=== PATIENT | female | born 1940 | race Caucasian/White ===

== ENCOUNTER 2017-02-07 18:22 | Inpatient (IN) ==
--- NOTE | 2017-02-07 19:40 | Emergency Department Note ---
Disposition Clinical Impression: Shortness of breath at rest Disposition: Admitted As Inpatient Condition: Fair Referrals: Michelle Tristan CNP [Primary Care Provider] - Forms: ED Satisfaction Letter SOB HPI - General Chief Complaint: ED Shortness of Breath/Dyspnea Stated Complaint: LYNETTE Time Seen by Provider: 02/07/17 18:28 Source: patient Vital Signs Reviewed: Yes - History of Present Illness Patient is a 76 -year-old female past medical history of CHF(last echo 2012, EF60%) presented to the ED with the 3 days of worsening shortness of breath and LE edema . The last three days patient has gained 10 pounds. She is increased from 2 pillow orthopnea to the 3 pillow orthopnea. She is been feeling that she is not able to eat very much because he is easily full. She does not require oxygen at home. She has been taking her Lasix as directed at 40 mg daily. Currently while talking. She is on 2 L of oxygen and saturating at 98% and says she still feels short of breath. Patient has associated generalized weakness and dizziness. Patient denies fever, chills, cough, vomiting, dysuria , falls, headache. - Related Data Home Medications Medication Instructions Recorded Confirmed Furosemide [Lasix] 40 mg PO DAILY 11/11/15 02/07/17 Pioglitazone HCl [Actos] 15 mg PO DAILY 11/11/15 02/07/17 Spironolactone [Aldactone] 50 mg PO DAILY 11/11/15 02/07/17 Acetaminophen [Tylenol Arthritis] 650 mg PO Q8H PRN 02/07/17 02/07/17 Esomeprazole Magnesium [Nexium 20 mg PO DAILY 02/07/17 02/07/17 24Hr] Aruna's Leg Cramps 1 tab PO HS 02/07/17 Allergies Allergy/AdvReac Type Severity Reaction Status Date / Time quinapril [From Accupril] Allergy Cough Verified 11/11/15 15:03 NSAIDS (Non-Steroidal AdvReac Gastrointestinal Verified 11/11/15 15:03 Anti-Inflamma Upset Past Medical History - Past Medical History Medical history: Reports: cirrhosis, coronary artery disease, diabetes, hypertension, myocardial infarction, renal disease Surgical history: Reports: appendectomy, cholecystectomy Psychiatric history: Reports: depression - Social History Smoking Status: Never smoker Smokeless Tobacco Status: No Alcohol use: Reports: none Drug use: Reports: none Physical Exam Constitutional: Alert, in no acute distress, well nourished, well developed. Head: Normocephalic, atraumatic, normal contour and symmetric, no masses, lesions or scars Heart: Normal, regular rate and rhythm, no murmurs Lungs: bibasilar crackles Clear to auscultation, no wheezes, rales, or rhonchi Abdomen: Soft, nondistended, nontender, and no masses palpable, bowel sounds present and normal, no guarding or rigidity. Extremities: multiple sores bilaterally on shins without signs of infection, +3 pitting edema, dorsal pedial pulses present, negative homen's sign, no pain with passive motion, No clubbing, cyanosis, or edema, radial pulse +2/4, capillary refill <2sec. Skin: Skin warm and dry, no lesions, no rashes, no jaundice Neurologic: Cranial nerves II through XII grossly intact, no focal deficits, strength within normal limits in all extremities Psych: Cooperative with exam, good eye contact, cognitive function intact, judgment good insight good, speech clear, thought process logical, and goal directed - General General appearance: alert, in no apparent distress Course Course Narrative: EKG showed normal sinus rhythm with a normal axis. BNP was elevated at 282 and has new onset of SOB with no prior echo concerns for congestive heart failure. CBC is pending. Due new onset of SOB, elevated BNP, and cxr that shows edema most likely due to acute congestive heart failure exacerbation and needs admitted for Echo and CHF work-up/management. Discussed with the hospitalist and they accepted admission. Vital Signs Temperature 98.1 F 02/07/17 18:34 Pulse Rate 82 02/07/17 18:34 Respiratory Rate 16 02/07/17 18:34 Blood Pressure 152/84 02/07/17 18:34 O2 Sat by Pulse Oximetry 100 02/07/17 18:34 Temperature 98.1 F 02/07/17 18:34 Pulse Rate 88 02/07/17 20:00 Respiratory Rate 18 02/07/17 20:00 Blood Pressure 166/63 02/07/17 20:00 O2 Sat by Pulse Oximetry 100 02/07/17 20:00 Oxygen Delivery Oxygen Delivery Nasal Cannula Shortness of Breath/Dyspnea - Medical Records Medical records reviewed: Yes I reviewed the patient's medical records. Abnormal Labs 02/07/17 02/07/17 19:21 19:48 Potassium 4.6 H BUN 39 H Creatinine 2.02 H Est GFR ( Amer) 29 L Est GFR (Non-Af Amer) 24 L Glucose 107 H B-Natriuretic Peptide 282 H - Lab Data Lab results reviewed: Yes I reviewed the patient's lab results. Result diagrams: 02/07/17 19:21 Lab Results 02/07/17 02/07/17 02/07/17 Range/Units 19:21 19:21 19:48 Sodium 138 (136-145) mEq/L Potassium 4.6 H (3.5-4.5) mEq/L Chloride 107 (98-109) mEq/L Carbon Dioxide 21 (19-29) mEq/L BUN 39 H (7-20) mg/dL Creatinine 2.02 H (0.57-1.11) mg/dL Est GFR ( Amer) 29 L (> 60) Est GFR (Non-Af Amer) 24 L (> 60) BUN/Creatinine Ratio 19 (6-26) Glucose 107 H (70-99) mg/dL Calculated Osmolality 296 (280-300) Calcium 9.2 (8.6-10.8) mg/dL Troponin I 0.00 (0-0.03) ng/mL B-Natriuretic Peptide 282 H (0-100) pg/mL - Radiology Data Radiology results reviewed: Yes I reviewed the patient's radiology results. Chest X-Ray 02/07/17 18:40 IMPRESSION: Prominent markings bilaterally may represent sequela of low volumes. Mild developing edema not excluded. D/ / Tam Mathews / Tam Mathews Interpreting Provider: Tam Mathews - EKG Data EKG attestation: Yes I reviewed and interpreted this EKG. EKG shows normal: Reports: sinus rhythm Rate: Reports: normal Rhythm: Reports: NSR [place]/QRS: Reports: normal Ectopy: Reports: PAC When compared to previous EKG there are: no significant changes Interpretation: Reports: no acute changes
[2017-02-07 19:43] LABS: Calcium 9.2 mg/dL (8.6-10.8); Potassium 4.6 mEq/L (3.5-4.5)
--- NOTE | 2017-02-07 20:11 | Emergency Department Note ---
START Narrative - START START: I examined this patient and my medical decision-making was reviewed with the TOGGLER/PA/Advanced Practice Nurse/Resident Physician. I agree with the documented findings, disposition and treatment plan as described except to the extent set forth below. The patient does have shortness of breath and she does have a history of ascites and does have an evaluation in progress. I did see the patient spoke with her and evaluated her and examined her. Results and chest x-ray pending. She is breathing and speaking comfortably at this time. 2010
[2017-02-07 21:38] LABS: Immature Platelets 2.1 % (1.1-6.1)
[2017-02-07 21:58] LABS: Hematocrit 18.4 % (35.3-44.9); Mean Corpuscular HGB Conc 30.4 g/dL (31.6-35.5); Mean Corpuscular Hemoglobin 27.3 pg (28.0-33.3); Mean Corpuscular Volume 89.8 fL (83.0-100.0); Mean Platelet Volume 10.3 fL (9.4-12.4); Red Blood Count 2.05 M/mcL (3.82-4.97); Red Cell Distribution Width 17.2 % (11.5-14.5)
[2017-02-07 22:16] LABS: Hemoglobin 5.6 g/dL (11.5-15.4)
[2017-02-08] MEDS ORDERED: 0.9 % Sodium Chloride 250 ML ONE ×2 (01:18→04:46)
[2017-02-08] MEDS ORDERED: *HR* Morphine 2 MG/ML SYRINGE IVP PRN (03:30)
[2017-02-08] MEDS ORDERED: Ondansetron 4 MG/2 ML VIAL IVP PRN (03:30)
[2017-02-08] MEDS ORDERED: *HR* OxyCODONE Immed Rel 5 MG TABLET PO PRN (03:30)
[2017-02-08] MEDS ORDERED: Naloxone 0.4 MG/ML INJ IVP PRN (03:30)
[2017-02-08] MEDS ORDERED: D5% in Water 1,000 ML IVC PRN (03:36)
[2017-02-08] MEDS ORDERED: Dextrose Gel 15 GM PO PRN ×2 (03:36)
[2017-02-08] MEDS ORDERED: *HR* Dextrose 50 % in Water (Syg) 50 ML SYRINGE IVP PRN (03:36)
--- NOTE | 2017-02-08 03:45 | Internal Med History&Physical ---
Date of Encounter: 02/08/17 Time of Encounter: 03:10 Assessment and Plan (1) Symptomatic anemia Current visit: Yes Status: Acute 1. Will transfuse PRBC's and monitor H/H closely. 2. Will provide oxygen as needed for support. 3. Do not suspect CHF; will order ECHO to evaluate LV function. 4. Monitor for GI blood loss. 5. Consult Dr. Leblanc for EGD/colonoscopy. (2) UGI bleed Current visit: Yes Status: Acute 1. Will start Protonix drip and add Carafate. 2. Keep npo. 3. Consult Dr. Leblanc for EGD +/- colonoscopy. 4. 2nd IV placement requested. (3) Type 2 diabetes mellitus Current visit: Yes Status: Chronic 1. Will hold Actos. Actos can rarely lead to fluid retention as well. 2. Will use SSI and adjust dose as necessary. Qualifiers: Diabetes mellitus complication status: with other specified complication Diabetes mellitus extermination inspector insulin use: without extermination inspector use Qualified Code( s): E11.69 - Type 2 diabetes mellitus with other specified complication (4) DVT prophylaxis Current visit: Yes Status: Acute 1. EPCD. 2. No anticoagulation due to GI blood loss. Internal Medicine - H&P: HPI Chief complaint: SOB; edema; melena Admitted From: Emergency Dept Plans for Post Hospital Care: Home History of present illness: Ms. Pineda is a 76 year old female who presented to the ER tonight with complaints of increasing edema, weight gain, shortness of breath, and melena. Workup in the ER focused on CHF and her history of CHF. She was initially treated for CHF and admitted to hospitalist service. However, lab results were later obtained and she was found to have a critical anemia with hemoglobin of 5.6. She was then questioned about GI blood loss, and she then reported to ER staff that she has been having melena for the last few days. She was initiated on PRBC transfusion per the ER. Upon my assessment of the patient, patient is resting comfortably. She denies any chest pain. She attributes her 10 pound weight gain in the last 2 days to her ascites. She states she has fatty liver disease from diabetes with subsequent cirrhosis. She has a history of esophageal varices and her last EGD was in October of this year with incomplete variceal banding. Her hemoglobin has dropped over 3 grams in the last 2 months. She denies any hematochezia or hematemesis. However, she does admit to having had melena in the last few days. She has a history of diastolic CHF with the last known EF of 60% in 2012. She denies any cardiac symptoms. She attributes her edema to her ascites. I suspect her dyspnea is secondary to demand ischemia from critical anemia. After I left the patient's room, I asked the nurse to place a second IV and to keep her nothing by mouth for likely EGD later today. Additionally, we will start her on Protonix drip and Carafate. Past Med Surg Social Fam HX - Past Medical History Attestation: Yes The following information was validated with the patient. Source: patient, old records reviewed Medical history: cirrhosis, coronary artery disease, diabetes, renal disease Psychiatric history: anxiety, depression - Past Surgical History Surgical History: appendectomy, cholecystectomy - Social History Smoking Status: Never smoker Smokeless Tobacco Status: No Alcohol use: none Drug use: none Current living situation: Home, With Family Activity Level: Independent ambulation Recent Out of Country Travel Within the Last 8 Weeks: No - Family History Mother Living Status: Hx Family GI Disorders: No Father Living Status: Hx Family GI Disorders: No Internal Medicine - H&P: Meds Furosemide [Lasix] 40 mg PO DAILY 11/11/15 [History] Pioglitazone HCl [Actos] 15 mg PO DAILY 11/11/15 [History] Spironolactone [Aldactone] 50 mg PO DAILY 11/11/15 [History] Acetaminophen [Tylenol Arthritis] 650 mg PO Q8H PRN 02/07/17 [History] Esomeprazole Magnesium [Nexium 24Hr] 20 mg PO DAILY 02/07/17 [History] Aruna's Leg Cramps 1 tab PO HS 02/07/17 [History] 3 Allergy/AdvReac Type Severity Reaction Status Date / Time quinapril [From Accupril] Allergy Cough Verified 11/11/15 15:03 NSAIDS (Non-Steroidal AdvReac Gastrointestinal Verified 11/11/15 15:03 Anti-Inflamma Upset - Constitutional Constitutional: weight gain (10 # in 2 days), no chills, no fever(s), no night sweats - EENT Eyes: no blurry vision, no change in vision Ears: no ear pain, no tinnitus Nose, mouth and throat: no nasal congestion, no nasal discharge, no sinus pressure, no sore throat - Cardiovascular Cardiovascular ROS IM: dyspnea, dyspnea on exertion, edema, no chest pain, no lightheadedness, no palpitations - Respiratory Respiratory: no cough, no hemoptysis, no chest congestion - Gastrointestinal Gastrointestinal: early satiety, melena, no abdominal pain, no coffee ground emesis, no diarrhea, no hematemesis, no hematochezia, no vomiting - Genitourinary Genitourinary: no dysuria, no flank pain, no hematuria - Musculoskeletal Musculoskeletal ROS IM: no arthralgias, no back pain - Integumentary Integumentary IM: no rash, no jaundice - Neurological Neurological ROS: no focal weakness, no frequent falls, no headache(s) - Psychiatric Psychiatric: no anxiety, no depression - Endocrine Endocrine IM: no polydipsia, no polyuria - Hematologic/Lymphatic Hematologic/Lymphatic: easy bruising, no lymphadenopathy - Allergic/Immunologic Allergic/Immunologic: no wheezing, no GI upset with certain foods - Constitutional Vitals: Temp Pulse Resp BP Pulse Ox 98.0 F 87 16 125/65 95 02/08/17 01:48 02/08/17 01:48 02/08/17 01:48 02/08/17 01:48 02/08/17 01:48 General appearance: Present: cooperative, A&O X 3, pleasant, no acute distress, answers questions appropriately - Head Head exam: Present: atraumatic, normal inspection - Eye Eye exam: Present: EOMI, normal appearance, PERRL. Absent: scleral icterus Pupils: Present: normal accommodation - ENT ENT exam: Present: mucous membranes dry, normal exam - Neck Neck exam general surgery: Present: full ROM, supple. Absent: tenderness - Respiratory Respiratory exam: Present: CTAB. Absent: chest wall tenderness, rales, respiratory distress, rhonchi, wheezes - Cardiovascular Cardiovascular exam: Present: RRR, +S1, +S2. Absent: diastolic murmur, JVD, systolic murmur - GI/Abdominal GI/Abdominal exam: Present: normal bowel sounds, soft, no peritoneal signs. Absent: guarding, hepatomegaly, mass, rebound, splenomegaly Additional comments: + shifting dullness and subtle fluid wave; + edema to abdomen - Extremities Exam Extremities exam: Present: full ROM, pedal edema (4+), warm. Absent: calf tenderness, joint swelling - Back Exam Back exam: Present: normal inspection. Absent: CVA tenderness (L), CVA tenderness (R) - Neurological Exam Neurological exam: Present: alert, CN II-XII intact, oriented X3, no focal deficits - Psychiatric Psychiatric exam: Present: normal affect, normal mood - Skin Skin exam: Present: dry, warm. Absent: rash Internal Med - H&P Results - Labs CBC & Chem 7: 02/07/17 21:29 02/07/17 19:21 - EKG Data -: EKG Interpreted by Myself - EKG Data Prior EKG available for review: no EKG comments: 02/08/17 03:51 NSR; no acute changes - Diagnostic Studies Chest x-ray Status: image reviewed by me (negative)
[2017-02-08 04:03] LABS: Mean Corpuscular Volume 90.9 fL (83.0-100.0); Red Blood Count 2.09 M/mcL (3.82-4.97)
[2017-02-08 04:04] LABS: Eosinophils # 0.1 K/mcL (0.0-0.6); Eosinophils % 4.9 %; Immature Granulocytes % 0.3 % (0-4); Lymphocytes # 0.8 K/mcL (0.6-4.6); Lymphocytes % 27.5 %; Mean Corpuscular Hemoglobin 27.3 pg (28.0-33.3); Mean Platelet Volume 9.6 fL (9.4-12.4); Monocytes # 0.6 K/mcL (0.0-1.3); Monocytes % 19.9 %; Neutrophils # 1.4 K/mcL (1.6-8.9); Red Cell Distribution Width 16.9 % (11.5-14.5); Segmented Neutrophils % 47.4 %
[2017-02-08] MEDS: Pantoprazole 40 MG in 0.9 % Sodium Chloride Mini Bag 100 ML IVC SCH ×3 (04:06→15:41)
[2017-02-08 04:12] LABS: INR 1.4; Prothrombin Time 14.9 Seconds (9.4-12.1)
[2017-02-08 04:15] LABS: Activated Partial Thrombo Time 30.9 Seconds (26.0-36.0)
[2017-02-08 04:16] LABS: Platelet Count 70 K/mcL (140-400)
[2017-02-08 04:17] LABS: Hemoglobin 5.7 g/dL (11.5-15.4)
[2017-02-08 04:23] LABS: Anisocytosis 1+ (Not Present); Platelet Estimate Decreased (Normal); Polychromasia 1+ (Not Present)
[2017-02-08 04:54] LABS: Hemoglobin A1C 5.4 %
[2017-02-08] MEDS: Insulin LISPRO 300 UNITS/3 ML VIAL SQ SCH ×3 (05:35→18:04)
[2017-02-08 06:00] LABS: Albumin 2.3 g/dL (3.5-5.0); Albumin/Globulin Ratio 0.6 (1.1-2.2); Bilirubin,Total 1.3 mg/dL (0.2-1.2); Calcium 8.7 mg/dL (8.6-10.8); Globulin 3.8 g/dL (2.4-3.5); Magnesium 1.7 mg/dL (1.6-2.6); Potassium 4.2 mEq/L (3.5-4.5); Total Protein 6.1 g/dL (6.0-8.3)
[2017-02-08] MEDS: Sucralfate 1 GM TABLET PO SCH ×4 (08:35→21:58)
[2017-02-08] MEDS ORDERED: *HR* Propofol 500 MG/50 ML BOTTLE IVC ONE (09:58)
[2017-02-08] MEDS ORDERED: Lidocaine -MPF 2% 5 ML VIAL INFILT ONE (09:58)
[2017-02-08 11:05] LABS: Hemoglobin 7.1 g/dL (11.5-15.4)
--- NOTE | 2017-02-08 11:24 | Gastroenterology Consult Note ---
<Prateek Jones - Last Filed: 02/08/17 11:20> Date of Encounter: 02/08/17 Time of Encounter: 10:15 - Assessment and plan (1) Cirrhosis Current Visit: Yes Status: Acute Assessment and plan: MELD-Na 18, Child-Lopez class B, DF 21.5. AFP 2 on 03/27/2016. EGD completed 04/11 with grade 2 esophageal varices. Check AFP and liver US. Plan for EGD today to evaluate varices. Qualifiers: Hepatic cirrhosis type: unspecified hepatic cirrhosis Ascites presence: without ascites Qualified Code(s): K74.60 - Unspecified cirrhosis of liver (2) Symptomatic anemia Current Visit: Yes Status: Acute Assessment and plan: Hgb on admission 5.6. Continue to monitor CBC and transfuse PRBC as needed. EGD today to evaluate known varices. (3) Melena Current Visit: Yes Status: Acute Assessment and plan: Likely secondary to variceal bleeding. Plan for EGD to evaluate varices. Continue to monitor CBC and transfuse PRBC as needed. - Time Spent With Patient Total time spent is greater than 50% in coordination of care (as documented) at patient's floor/unit and/or counseling patient: GI History of Present Illness - Data of Consult Patient: known to practice within the last 3 years Consult date: 02/08/17 Requesting Physician: Karyn Orantes - Consult Narrative Reason for consult: GI bleed, cirrhosis, varices History of present illness: Ms. Pineda is a 76 year old female with PMHx of cirrhosis, CAD, DM, who presented to the ED with increasing edema, weight gain, shortness of breath, and melena. Workup in the ED focused on CHF and her history of CHF. She was initially treated for CHF and admitted to hospitalist service. However, lab results were later obtained and she was found to have a critical anemia with hemoglobin of 5.6. She was then questioned about GI blood loss, and she then reported to ED staff that she has been having melena for the last few days. She was initiated on PRBC transfusion per the ED. She states she has fatty liver disease from diabetes with subsequent cirrhosis. She has a history of esophageal varices and her last EGD was in October of this year with incomplete variceal banding. Protonix drip was started. Procedures: EGD 04/11/2016 Dr. Leblanc: Grade 2 esophageal varices incompletely eradicated, banded, portal hypertensive gastropathy recommended repeat EGD in one year. Colonoscopy 01/20/2014 Dr. Leblanc: Diverticulosis, 2 benign polyps NSAIDs: ASA Anticoagulation: None Past Med Surg Social Fam HX - Past Medical History Medical history: cirrhosis, coronary artery disease, diabetes, renal disease Psychiatric history: anxiety, depression - Past Surgical History Surgical History: appendectomy, cholecystectomy - Social History Smoking Status: Never smoker Smokeless Tobacco Status: No Alcohol use: none Drug use: none - Family History Mother Living Status: Hx Family GI Disorders: No Father Living Status: Hx Family GI Disorders: No - Gastrointestinal Gastrointestinal: Present: as per HPI - Constitutional Constitutional: as per HPI - EENT Eyes: as per HPI Ears: Present: as per HPI Nose, mouth and throat: Present: as per HPI - Cardiovascular Cardiovascular ROS: Present: as per HPI - Respiratory Respiratory IM: Present: as per HPI - Genitourinary Genitourinary: Absent: change in color, Urinary frequency - Neurological ROS Neurological GI: Present: as per HPI - Hematologic/Lymphatic Hematologic/Lymphatic pediatric: Present: as per HPI - Musculoskeletal Musculoskeletal ROS GI: Present: as per HPI - Integumentary Integumentary GI: Present: as per HPI - Psychiatric ROS Psychiatric GI: Present: as per HPI - Endocrine Endocrine IM: Present: as per HPI - Constitutional Vitals: Temp Pulse Resp BP Pulse Ox 97.9 F 79 16 121/66 95 02/08/17 09:03 02/08/17 09:03 02/08/17 09:03 02/08/17 09:03 02/08/17 09:03 General appearance: Present: cooperative, A&O X 3, no acute distress, answers questions appropriately - Head Head exam: Present: atraumatic, normocephalic - Eye Eye exam: Present: normal appearance, sclera anicteric - ENT ENT exam: Present: mucous membranes moist - Neck Neck exam general surgery: Present: normal inspection, trachea midline - Respiratory Respiratory exam: Present: decreased breath sounds, CTAB. Absent: rales, rhonchi - Cardiovascular Cardiovascular exam: Present: RRR, +S1, +S2 - GI/Abdominal GI/Abdominal exam: Present: soft, no peritoneal signs. Absent: distended, firm , guarding, tenderness - Rectal Rectal exam: Present: deferred - Extremities Exam Extremities exam: Present: warm - Neurological Exam Neurological exam: Present: no focal deficits - Psychiatric Psychiatric exam: Present: normal affect, normal mood - Skin Skin exam: Present: dry, intact, normal color, warm Results - Labs CBC & Chem 7: 02/08/17 10:57 02/08/17 03:50 Labs: Last Result Calcium 8.7 mg/dL (8.6-10.8) 02/08/17 03:50 Troponin I 0.00 ng/mL (0-0.03) 02/07/17 19:21 Entire Visit Hgb 7.1 g/dL (11.5-15.4) L 02/08/17 10:57 Hct 23.0 % (35.3-44.9) L 02/08/17 10:57 PT 14.9 Seconds (9.4-12.1) H 02/08/17 03:50 Total Bilirubin 1.3 mg/dL (0.2-1.2) H 02/08/17 03:50 AST 23 Units/L (5-34) 02/08/17 03:50 ALT 9 Units/L (0-55) 02/08/17 03:50 - ABG ABG results: PT/INR, D-dimer PT 14.9 Seconds (9.4-12.1) H 02/08/17 03:50 Consult Discharge Plan - Plan Referrals: Michelle Tristan, LABORATORY PHLEBOTOMIST [Primary Care Provider] - <Derrick Leblanc - Last Filed: 02/08/17 12:31> Date of Encounter: 02/08/17 Time of Encounter: 12:15 - Time Spent With Patient Total time spent is greater than 50% in coordination of care (as documented) at patient's floor/unit and/or counseling patient: GI History of Present Illness - Data of Consult Requesting Physician: Karyn Orantes - Consult Narrative History of present illness: Ms. Pineda is a 76 year old female - Constitutional Vitals: Temp Pulse Resp BP Pulse Ox 97.6 F 78 18 144/65 97 02/08/17 12:29 02/08/17 12:29 02/08/17 12:29 02/08/17 12:29 02/08/17 12:29 Results - Labs CBC & Chem 7: 02/08/17 10:57 02/08/17 03:50 Labs: Last Result Calcium 8.7 mg/dL (8.6-10.8) 02/08/17 03:50 Troponin I 0.00 ng/mL (0-0.03) 02/07/17 19:21 Entire Visit Hgb 7.1 g/dL (11.5-15.4) L 02/08/17 10:57 Hct 23.0 % (35.3-44.9) L 02/08/17 10:57 PT 14.9 Seconds (9.4-12.1) H 02/08/17 03:50 Total Bilirubin 1.3 mg/dL (0.2-1.2) H 02/08/17 03:50 AST 23 Units/L (5-34) 02/08/17 03:50 ALT 9 Units/L (0-55) 02/08/17 03:50 - ABG ABG results: PT/INR, D-dimer PT 14.9 Seconds (9.4-12.1) H 02/08/17 03:50 - Attending Attestation I examined this patient and my medical decision-making was reviewed with the Resident Physician. I agree with the documented findings, disposition and treatment plan as described except to the extent set forth below.
--- NOTE | 2017-02-08 11:34 | Anesthesia Evaluation PreOp ---
Date of Encounter: 02/08/17 Time of Encounter: 12:42 - Past History Planned Operation: EGD (GIB) Cardiac History: HTN Pulmonary History: Other (pleural effusions) DRESSAGE INSTRUCTOR History: Denies Any Significant HX Other Medical History: Hepatic (Cirrhosis), Renal (GIB - patient with known varices) Anesthesia History: No Prior Anesthetic Complications Alcohol Use: none Drug use: none Medications and Allergies Furosemide [Lasix] 40 mg PO DAILY 11/11/15 [History] Pioglitazone HCl [Actos] 15 mg PO DAILY 11/11/15 [History] Spironolactone [Aldactone] 50 mg PO DAILY 11/11/15 [History] Acetaminophen [Tylenol Arthritis] 650 mg PO Q8H PRN 02/07/17 [History] Esomeprazole Magnesium [Nexium 24Hr] 20 mg PO DAILY 02/07/17 [History] Aruna's Leg Cramps 1 tab PO HS 02/07/17 [History] 3 Allergy/AdvReac Type Severity Reaction Status Date / Time quinapril [From Accupril] Allergy Cough Verified 11/11/15 15:03 NSAIDS (Non-Steroidal AdvReac Gastrointestinal Verified 11/11/15 15:03 Anti-Inflamma Upset - Meds/Allergy Pre-op Review Medications Reviewed: Yes Allergies Reviewed: Yes Beta Blockers on Current Med List: No Anesthesia Results - Labs 02/08/17 10:57 02/08/17 03:50 - Imaging EKG: report reviewed, image reviewed (SINUS RHYTHM WITH PACS BORDERLINE LEFT AXIS DEVIATION POOR R WAVE PROGRESSION) Chest x-ray: report reviewed (02-07-17 CXR: Prominent markings bilaterally may represent sequela of low volumes. Mild developing edema not excluded.), image reviewed Additional studies: TTE: Impressions: LVEF 60-65%. Normal left ventricular size and systolic function. There is evidence of mild diastolic dysfunction of the left ventricle. Normal right ventricular size and function. Mild-moderate mitral regurgitation. Mild tricuspid regurgitation. Mild pulmonary hypertension by TR gradient, 37 mmHg. IVC is not well visualized to estimate RVSP. Abdominal ascites. Anesthesia Exam Last Vital Signs Temp 97.9 F 02/08/17 11:19 Pulse 80 02/08/17 11:19 Resp 16 02/08/17 11:19 BP 125/72 02/08/17 11:19 Pulse Ox 95 02/08/17 11:19 Weight: 107 kg - HEENT Pupil (Motor): Pupils equal, EOMI Mallampati: III Teeth: Poor dentition Oral Opening: Greater than 3 - DRESSAGE INSTRUCTOR LOC: Oriented DRESSAGE INSTRUCTOR Motor: Normal RUE, Normal LUE, Normal RLE, Normal LLE, Normal Face - Cardiac Rhythm: Regular Murmur: Systolic (low grade ANA MARIA) - Pulmonary Breath Sounds: bilateral Clear Respiratory Effort: Symmetrical Anesthesia Assess/Plan ASA Score: 3 Modified Augustine Scale for Level of Consciousness: Cooperative, oriented, and tranquil Anesthetic Plan: MAC Monitoring Plan: Standard Monitors Recovery Plan: PACU
[2017-02-08] MEDS ORDERED: Simethicone 40 MG/0.6 ML MLS IR ONE (12:50)
[2017-02-08] MEDS ORDERED: Tetracaine/Benzocaine/Butamben 200MG/SPRAY (100SPY/BOT) MM ONE (12:50)
[2017-02-08] MEDS: 0.9 % Sodium Chloride 1,000 ML IVC SCH ×2 (13:00→21:59)
--- NOTE | 2017-02-08 16:13 | Internal Med Progress Note ---
Date of Encounter: 02/08/17 Time of Encounter: 09:50 - Assessment and plan (1) Symptomatic anemia Current Visit: Yes Status: Acute Assessment and plan: Acute blood loss anemia - secondary to upper GI bleed likely due to variceal bleeding Status post 2 units PRBC transfusion H&H now improved and stable, monitor H&H closely Continue IV fluids, IV Protonix drip, IV Zofran, O2 via nasal cannula Chest x-ray - prominent markings bilaterally likely low lung volumes, possible developing edema Echocardiogram - LVEF 60-65%, normal LV size and function, mild diastolic dysfunction, normal RV size and function EGD - gastric antral vascular ectasia, portal hypertensive gastropathy, 2 nonbleeding angioma ectasias in the stomach, treated with APC Continue to monitor closely, labs in a.m. (2) UGI bleed Current Visit: Yes Status: Acute Assessment and plan: Acute upper GI bleed - likely secondary to variceal bleeding - with melena but no hematemesis NPO, IV Protonix drip, Carafate, IV fluids Gastroesophageal consult - EGD done this morning Continue close monitoring, labs in a.m. (3) Type 2 diabetes mellitus Current Visit: Yes Status: Chronic Assessment and plan: Diabetes mellitus type 2, onz-xlxhuwu-[id number], hyperglycemia Continue insulin sliding scale, glucose checks Qualifiers: Diabetes mellitus complication status: with other specified complication Diabetes mellitus solvent recoverer insulin use: without intermediate use Qualified Code( s): E11.69 - Type 2 diabetes mellitus with other specified complication (4) Cirrhosis Current Visit: Yes Status: Chronic Assessment and plan: Cirrhosis - probable DRIVER - likely causing ascites and edema and varices History of variceal banding and paracentesis in the past Follows up with gastroenterology as outpatient Qualifiers: Hepatic cirrhosis type: unspecified hepatic cirrhosis Ascites presence: without ascites Qualified Code(s): K74.60 - Unspecified cirrhosis of liver (5) DVT prophylaxis Current Visit: Yes Status: Acute Assessment and plan: Continue SCDs, hold anticoagulation due to GI bleed - Time Spent With Patient 25 - 35 minutes - Subjective Interval history: Examined this morning. Patient is awake and alert. Not in any distress. Denies chest pain or shortness of breath. Denies vomiting. Denies abdominal pain, but states her abdomen is distended. No fever. Hemodynamically stable. Admitted for severe anemia secondary to GI bleed. 2 units PRBC transfused and H &H is now 7.1 and 23.0. Gastroenterology consult. EGD done this morning. No other acute events or complaints. - Constitutional Vitals: Temp Pulse Resp BP Pulse Ox 97.8 F 78 16 146/74 98 02/08/17 15:57 02/08/17 15:57 02/08/17 15:57 02/08/17 15:57 02/08/17 15:57 General appearance: Present: cooperative, A&O X 3, pleasant, no acute distress, answers questions appropriately - Head Head exam: Present: atraumatic - Eye Eye exam: Present: EOMI - ENT ENT exam: Present: mucous membranes dry - Respiratory Respiratory exam: Present: CTAB. Absent: rales, rhonchi, wheezes, tachypnea - Cardiovascular Cardiovascular exam: Present: RRR, +S1, +S2 - GI/Abdominal GI/Abdominal exam: Present: distended (Ascites present), soft. Absent: firm, guarding, tenderness - Extremities Exam Extremities exam: Present: pedal edema (Bilateral lower leg pedal edema 4+ with mild stasis dermatitis), radial pulses palpable and symmetrical. Absent: cyanotic - Neurological Exam Neurological exam: Present: alert, oriented X3, no focal deficits. Absent: facial droop, speech deficit Internal Medicine: Result - Labs CBC & Chem 7: 02/08/17 10:57 02/08/17 03:50 Labs: Short CBC 02/08/17 Range/Units 10:57 Hgb 7.1 L (11.5-15.4) g/dL Hct 23.0 L (35.3-44.9) % - ABG Interpretation ABG results: PT/INR, D-dimer PT 14.9 Seconds (9.4-12.1) H 02/08/17 03:50 Consult Discharge Plan - Plan Referrals: Michelle Tristan, AREA INTELLIGENCE TECHNICIAN [Primary Care Provider] -
--- NOTE | 2017-02-08 17:11 | Electrocardiograph Report ---
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
[2017-02-08 18:53] LABS: Hemoglobin 8.2 g/dL (11.5-15.4)
[2017-02-08] MEDS ORDERED: Temazepam 15 MG CAPSULE PO ONE (23:04)
[2017-02-09] MEDS: Insulin LISPRO 300 UNITS/3 ML VIAL SQ SCH ×4 (00:04→17:27)
[2017-02-09 00:52] LABS: Calcium 8.9 mg/dL (8.6-10.8)
[2017-02-09 00:53] LABS: Potassium 4.7 mEq/L (3.5-4.5)
[2017-02-09 00:58] LABS: Basophils % 0.2 %; Eosinophils # 0.1 K/mcL (0.0-0.6); Eosinophils % 2.2 %; Hematocrit 24.5 % (35.3-44.9); Hemoglobin 7.5 g/dL (11.5-15.4); Immature Granulocytes % 0.7 % (0-4); Immature Platelets 1.6 % (1.1-6.1); Lymphocytes # 0.6 K/mcL (0.6-4.6); Lymphocytes % 13.6 %; Mean Corpuscular HGB Conc 30.6 g/dL (31.6-35.5); Mean Corpuscular Volume 88.1 fL (83.0-100.0); Monocytes # 0.6 K/mcL (0.0-1.3); Neutrophils # 3.1 K/mcL (1.6-8.9); Red Blood Count 2.78 M/mcL (3.82-4.97); Red Cell Distribution Width 18.3 % (11.5-14.5); Segmented Neutrophils % 69.3 %
[2017-02-09 01:00] LABS: Platelet Count 75 K/mcL (140-400)
[2017-02-09 01:19] LABS: Anisocytosis 2+ (Not Present); Hypochromasia Present (Not Present); Platelet Estimate Decreased (Normal)
[2017-02-09 01:21] LABS: Polychromasia 1+ (Not Present)
[2017-02-09 06:40] LABS: Hematocrit 23.8 % (35.3-44.9); Hemoglobin 7.3 g/dL (11.5-15.4)
[2017-02-09] MEDS: Pantoprazole 40 MG VIAL IVP SCH (08:59)
[2017-02-09] MEDS: Sucralfate 1 GM TABLET PO SCH ×4 (08:59→22:29)
[2017-02-09 12:40] LABS: Hematocrit 24.2 % (35.3-44.9); Hemoglobin 7.3 g/dL (11.5-15.4)
[2017-02-09] MEDS: 0.9 % Sodium Chloride 1,000 ML IVC SCH (12:45)
--- NOTE | 2017-02-09 14:10 | Internal Med Progress Note ---
Date of Encounter: 02/09/17 Time of Encounter: 08:10 - Assessment and plan (1) Symptomatic anemia Current Visit: Yes Status: Acute Assessment and plan: Acute blood loss anemia - secondary to upper GI bleed likely due to variceal bleeding - now improving Status post 3 units PRBC transfusion H&H now improved and stable, monitor H&H closely Continue IV fluids, IV Protonix, IV Zofran, Carafate, O2 via nasal cannula Gastroenterology consult Chest x-ray - prominent markings bilaterally likely low lung volumes, possible developing edema Echocardiogram - LVEF 60-65%, normal LV size and function, mild diastolic dysfunction, normal RV size and function EGD - gastric antral vascular ectasia, portal hypertensive gastropathy, 2 nonbleeding angioectasias in the stomach, treated with APC US Liver - cirrhotic liver with right upper quadrant ascites Continue to monitor closely, labs in a.m. (2) UGI bleed Current Visit: Yes Status: Acute Assessment and plan: Acute upper GI bleed - likely secondary to variceal bleeding - with melena but no hematemesis IV Protonix, Carafate, IV fluids Gastroesophageal consult - EGD done - reports reviewed Continue close monitoring, labs in a.m. (3) Type 2 diabetes mellitus Current Visit: Yes Status: Chronic Assessment and plan: Diabetes mellitus type 2, vrh-[id number]-[id number], hyperglycemia Continue insulin sliding scale, glucose checks Qualifiers: Diabetes mellitus complication status: with other specified complication Diabetes mellitus termination clerk insulin use: without termination clerk use Qualified Code( s): E11.69 - Type 2 diabetes mellitus with other specified complication (4) Cirrhosis Current Visit: Yes Status: Chronic Assessment and plan: Cirrhosis - probable DRIVER - likely causing ascites and edema and varices History of variceal banding and paracentesis in the past Follows up with gastroenterology as outpatient Qualifiers: Hepatic cirrhosis type: unspecified hepatic cirrhosis Ascites presence: without ascites Qualified Code(s): K74.60 - Unspecified cirrhosis of liver (5) DVT prophylaxis Current Visit: Yes Status: Acute Assessment and plan: Continue SCDs, hold anticoagulation due to GI bleed - Time Spent With Patient 25 - 35 minutes - Subjective Interval history: Examined this morning. Patient is awake and alert. Not in any distress. Denies chest pain or shortness of breath. Denies vomiting. Denies abdominal pain, but states her abdomen is distended. No fever. Hemodynamically stable. No other acute events or complaints 3 units PRBC transfused and H&H is now 7.3 and 24.2. Gastroenterology consult. EGD done - gastric antral vascular ectasia, portal hypertensive gastropathy, nonbleeding angioectasia. Treated with APC. - Constitutional Vitals: Temp Pulse Resp BP Pulse Ox 98.3 F 76 16 112/42 91 02/09/17 11:10 02/09/17 11:10 02/09/17 11:10 02/09/17 11:10 02/09/17 11:10 General appearance: Present: cooperative, A&O X 3, pleasant, no acute distress, answers questions appropriately - Head Head exam: Present: atraumatic - Eye Eye exam: Present: EOMI - ENT ENT exam: Present: mucous membranes dry - Respiratory Respiratory exam: Present: CTAB. Absent: rales, rhonchi, wheezes, tachypnea - Cardiovascular Cardiovascular exam: Present: RRR, +S1, +S2 - GI/Abdominal GI/Abdominal exam: Present: distended (Ascites present), soft. Absent: firm, guarding, tenderness - Extremities Exam Extremities exam: Present: pedal edema (Bilateral lower leg pedal edema 4+ with stasis dermatitis), radial pulses palpable and symmetrical. Absent: cyanotic - Neurological Exam Neurological exam: Present: alert, oriented X3, no focal deficits. Absent: facial droop, speech deficit Internal Medicine: Result - Labs CBC & Chem 7: 02/09/17 12:33 02/09/17 00:29 Labs: Short CBC 02/08/17 02/09/17 02/09/17 Range/Units 18:33 00:48 06:32 WBC 4.5 D (4.3-11.1) K/mcL Hgb 8.2 L 7.5 L 7.3 L (11.5-15.4) g/dL Hct 28.0 L 24.5 L 23.8 L (35.3-44.9) % Plt Count 75 L (140-400) K/mcL Neutrophils # 3.1 (1.6-8.9) K/mcL 02/09/17 Range/Units 12:33 WBC (4.3-11.1) K/mcL Hgb 7.3 L (11.5-15.4) g/dL Hct 24.2 L (35.3-44.9) % Plt Count (140-400) K/mcL Neutrophils # (1.6-8.9) K/mcL BMP 02/09/17 00:29 Sodium 141 Potassium 4.7 H Chloride 110 H Carbon Dioxide 22 BUN 31 H Creatinine 1.53 H Glucose 83 Calcium 8.9 - ABG Interpretation ABG results: PT/INR, D-dimer PT 14.9 Seconds (9.4-12.1) H 02/08/17 03:50 - Impressions Impressions Liver Ultrasound 02/08/17 21:00 IMPRESSION: Cirrhotic liver with right upper quadrant ascites. D/ / Radha Luevano Cha, MD / Radha Luevano Cha, MD Interpreting Provider: Radha Luevano Cha, MD Consult Discharge Plan - Plan Referrals: Michelle Tristan, PRINTER MACHINE [Primary Care Provider] -
[2017-02-09 18:29] LABS: Hematocrit 25.8 % (35.3-44.9); Hemoglobin 7.9 g/dL (11.5-15.4)
[2017-02-10 01:10] LABS: Hemoglobin 7.5 g/dL (11.5-15.4); Immature Granulocytes % 0.3 % (0-4)
[2017-02-10 01:12] LABS: Basophils % 0.5 %; Eosinophils # 0.2 K/mcL (0.0-0.6); Eosinophils % 4.7 %; Hematocrit 24.9 % (35.3-44.9); Immature Platelets 1.6 % (1.1-6.1); Lymphocytes # 0.8 K/mcL (0.6-4.6); Lymphocytes % 20.7 %; Mean Corpuscular HGB Conc 30.1 g/dL (31.6-35.5); Mean Corpuscular Hemoglobin 27.1 pg (28.0-33.3); Mean Corpuscular Volume 89.9 fL (83.0-100.0); Mean Platelet Volume 10.2 fL (9.4-12.4); Monocytes # 0.7 K/mcL (0.0-1.3); Monocytes % 17.5 %; Red Blood Count 2.77 M/mcL (3.82-4.97); Red Cell Distribution Width 18.5 % (11.5-14.5); Segmented Neutrophils % 56.3 %
[2017-02-10 01:13] LABS: Neutrophils # 2.1 K/mcL (1.6-8.9); Platelet Count 72 K/mcL (140-400)
[2017-02-10] MEDS: Insulin LISPRO 300 UNITS/3 ML VIAL SQ SCH ×4 (01:13→22:29)
[2017-02-10 01:24] LABS: Calcium 8.1 mg/dL (8.6-10.8); Potassium 4.3 mEq/L (3.5-4.5)
[2017-02-10 02:03] LABS: Anisocytosis 1+ (Not Present); Macrocytosis Present (Not Present); Microcytosis Present (Not Present); Platelet Estimate Decreased (Normal)
[2017-02-10 06:19] LABS: Hematocrit 23.2 % (35.3-44.9); Hemoglobin 7.1 g/dL (11.5-15.4)
[2017-02-10] MEDS: Sucralfate 1 GM TABLET PO SCH ×4 (06:45→22:43)
[2017-02-10] MEDS: Pantoprazole 40 MG VIAL IVP SCH (09:12)
[2017-02-10] MEDS: 0.9 % Sodium Chloride 1,000 ML IVC SCH (09:15)
[2017-02-10] MEDS ORDERED: 0.9 % Sodium Chloride 250 ML ONE (11:24)
--- NOTE | 2017-02-10 16:03 | Internal Med Progress Note ---
Date of Encounter: 02/10/17 Time of Encounter: 08:35 - Assessment and plan (1) Symptomatic anemia Current Visit: Yes Status: Acute Assessment and plan: Acute blood loss anemia - secondary to upper GI bleed possibly due to variceal bleeding - slowly improving Status post 3 units PRBC transfusion, transfuse 1 more unit PRBC today H&H now improved and stable, monitor H&H closely Continue IV fluids, IV Protonix, IV Zofran, Carafate, O2 via nasal cannula Gastroenterology consult - EGD done Chest x-ray - prominent markings bilaterally likely low lung volumes, possible developing edema Echocardiogram - LVEF 60-65%, normal LV size and function, mild diastolic dysfunction, normal RV size and function EGD - gastric antral vascular ectasia, portal hypertensive gastropathy, 2 nonbleeding angioectasias in the stomach, treated with APC US Liver - cirrhotic liver with right upper quadrant ascites Continue to monitor closely, labs in a.m. (2) UGI bleed Current Visit: Yes Status: Acute Assessment and plan: Acute upper GI bleed - likely secondary to variceal bleeding - with melena but no hematemesis IV Protonix, Carafate, IV fluids Gastroesophageal consult - EGD done - reports reviewed Continue close monitoring, labs in a.m. (3) Type 2 diabetes mellitus Current Visit: Yes Status: Chronic Assessment and plan: Diabetes mellitus type 2, uwe-ldgzizk-akgfjigmr, hyperglycemia Continue insulin sliding scale, glucose checks Qualifiers: Diabetes mellitus complication status: with other specified complication Diabetes mellitus skilled nursing insulin use: without skilled nursing use Qualified Code( s): E11.69 - Type 2 diabetes mellitus with other specified complication (4) Cirrhosis Current Visit: Yes Status: Chronic Assessment and plan: Cirrhosis - probable DRIVER - likely causing ascites and edema and varices History of variceal banding and paracentesis in the past Interventional radiology consult for possible paracentesis Follows up with gastroenterology as outpatient Qualifiers: Hepatic cirrhosis type: unspecified hepatic cirrhosis Ascites presence: without ascites Qualified Code(s): K74.60 - Unspecified cirrhosis of liver (5) DVT prophylaxis Current Visit: Yes Status: Acute Assessment and plan: Continue SCDs, hold anticoagulation due to GI bleed - Time Spent With Patient 25 - 35 minutes - Subjective Interval history: Examined this morning. Patient is awake and alert. Not in any distress. Denies chest pain or shortness of breath. Denies vomiting. Denies abdominal pain, but states her abdomen is distended due to fluid. No fever. Hemodynamically stable. No other acute events or complaints 3 units PRBC transfused and H&H is now 7.5 and 24.9. One more unit PRBC to be transfused today. Interventional radiology consult for possible paracentesis. Gastroenterology consult. EGD done - gastric antral vascular ectasia, portal hypertensive gastropathy, nonbleeding angioectasia. Treated with APC. - Constitutional Vitals: Temp Pulse Resp BP Pulse Ox 97.9 F 79 16 145/66 95 02/10/17 15:30 02/10/17 15:30 02/10/17 15:30 02/10/17 15:30 02/10/17 15:30 General appearance: Present: cooperative, A&O X 3, pleasant, no acute distress, answers questions appropriately - Head Head exam: Present: atraumatic - Eye Eye exam: Present: EOMI - ENT ENT exam: Present: mucous membranes moist - Respiratory Respiratory exam: Present: CTAB. Absent: rales, rhonchi, wheezes, tachypnea - Cardiovascular Cardiovascular exam: Present: RRR, +S1, +S2 - GI/Abdominal GI/Abdominal exam: Present: distended (ascites present), soft. Absent: firm, guarding, tenderness - Extremities Exam Extremities exam: Present: pedal edema (Bilateral lower leg edema 4+ with stasis dermatitis), radial pulses palpable and symmetrical. Absent: cyanotic - Neurological Exam Neurological exam: Present: alert, oriented X3, no focal deficits. Absent: facial droop, speech deficit Internal Medicine: Result - Labs CBC & Chem 7: 02/10/17 06:01 02/10/17 00:50 Labs: Short CBC 02/09/17 02/10/17 02/10/17 Range/Units 18:22 00:50 06:01 WBC 3.8 L (4.3-11.1) K/mcL Hgb 7.9 L 7.5 L 7.1 L (11.5-15.4) g/dL Hct 25.8 L 24.9 L 23.2 L (35.3-44.9) % Plt Count 72 L (140-400) K/mcL Neutrophils # 2.1 (1.6-8.9) K/mcL BMP 02/10/17 00:50 Sodium 141 Potassium 4.3 Chloride 111 H Carbon Dioxide 23 BUN 29 H Creatinine 1.75 H Glucose 118 H Calcium 8.1 L - ABG Interpretation ABG results: PT/INR, D-dimer PT 14.9 Seconds (9.4-12.1) H 02/08/17 03:50 Consult Discharge Plan - Plan Referrals: Michelle Tristan, LUKE [Primary Care Provider] -
[2017-02-10 16:26] LABS: Hematocrit 28.4 % (35.3-44.9)
[2017-02-10 16:28] LABS: Hemoglobin 8.7 g/dL (11.5-15.4)
[2017-02-11 04:04] LABS: Immature Granulocytes % 0.3 % (0-4); Mean Corpuscular HGB Conc 30.5 g/dL (31.6-35.5)
[2017-02-11 04:06] LABS: Basophils % 0.6 %; Eosinophils # 0.2 K/mcL (0.0-0.6); Eosinophils % 4.7 %; Hematocrit 25.9 % (35.3-44.9); Hemoglobin 7.9 g/dL (11.5-15.4); Immature Platelets 1.7 % (1.1-6.1); Lymphocytes # 0.8 K/mcL (0.6-4.6); Lymphocytes % 21.6 %; Mean Corpuscular Hemoglobin 27.7 pg (28.0-33.3); Mean Corpuscular Volume 90.9 fL (83.0-100.0); Monocytes # 0.7 K/mcL (0.0-1.3); Monocytes % 18.8 %; Red Blood Count 2.85 M/mcL (3.82-4.97); Red Cell Distribution Width 17.5 % (11.5-14.5)
[2017-02-11 04:11] LABS: Calcium 8.3 mg/dL (8.6-10.8); Potassium 4.3 mEq/L (3.5-4.5)
[2017-02-11] MEDS: Insulin LISPRO 300 UNITS/3 ML VIAL SQ SCH ×3 (04:13→12:41)
[2017-02-11 04:32] LABS: Neutrophils # 1.9 K/mcL (1.6-8.9); Platelet Count 67 K/mcL (140-400)
[2017-02-11 05:22] LABS: Hypochromasia Present (Not Present); Platelet Estimate Decreased (Normal)
[2017-02-11] MEDS: Sucralfate 1 GM TABLET PO SCH ×3 (06:47→17:33)
--- NOTE | 2017-02-11 08:50 | IR Procedure Note ---
Date of procedure: 02/11/17 Consent Obtained: Written consent Timeout: Correct patient and procedure verified, Time out performed, Skin prep completed Local anesthetic: Lidocaine 1% Indications: Ascites Procedure Performed: Paracentesis Complications: None; Tolerated procedure well (Monitor on floor)
[2017-02-11] MEDS: Pantoprazole 40 MG VIAL IVP SCH (09:57)
[2017-02-11] MEDS: 0.9 % Sodium Chloride 1,000 ML IVC SCH (10:00)
[2017-02-11] MEDS ORDERED: 0.9 % Sodium Chloride 250 ML ONE (12:02)
[2017-02-11 15:57] VITALS: BP 116/65
[2017-02-11 17:11] LABS: Hematocrit 29.8 % (35.3-44.9)
--- NOTE | 2017-02-11 18:11 | Discharge Summary ---
Date of Encounter: 02/11/17 Time of Encounter: 08:00 - Discharge Diagnosis (1) Symptomatic anemia Priority: Primary Status: Acute Comments: Acute blood loss anemia - secondary to upper GI bleed possibly due to variceal bleeding - slowly improving Status post 5 units PRBC transfusion H&H now improved and stable, repeat CBC in 3 days Continue Protonix, Carafate Gastroenterology consult - EGD done Chest x-ray - prominent markings bilaterally likely low lung volumes, possible developing edema Echocardiogram - LVEF 60-65%, normal LV size and function, mild diastolic dysfunction, normal RV size and function EGD - gastric antral vascular ectasia, portal hypertensive gastropathy, 2 nonbleeding angioectasias in the stomach, treated with APC US Liver - cirrhotic liver with right upper quadrant ascites Advised to follow-up with primary care physician in 3 days and repeat CBC in 3 days Follow-up with biometric fingerprinting technician for colonoscopy as outpatient (2) UGI bleed Priority: Primary Status: Acute Comments: Acute upper GI bleed - likely secondary to variceal bleeding - with melena but no hematemesis Protonix, Carafate Gastroesophageal consult - EGD done - reports reviewed Continue close monitoring, labs in a.m. Return if symptoms worsen (3) Type 2 diabetes mellitus Priority: Secondary Status: Chronic Comments: Diabetes mellitus type 2, aaq-yvgxsno-ddonjpafj, hyperglycemia Continue home meds Qualifiers: Diabetes mellitus complication status: with other specified complication Diabetes mellitus superintendent terminal insulin use: without superintendent terminal use Qualified Code( s): E11.69 - Type 2 diabetes mellitus with other specified complication (4) Cirrhosis Priority: Secondary Status: Chronic Comments: Cirrhosis - probable DRIVER - likely causing ascites and edema and varices History of variceal banding Interventional radiology consult - paracentesis done, 3600 mL of a sciatic fluid drained Follows up with gastroenterology as outpatient Qualifiers: Hepatic cirrhosis type: unspecified hepatic cirrhosis Ascites presence: without ascites Qualified Code(s): K74.60 - Unspecified cirrhosis of liver - Discharge Medications Prescriptions: OxyCODONE Immed Rel [Roxicodone 5 MG] 5 mg PO Q8HR PRN #10 tab PRN Reason: Severe Pain Ferrous Sulfate [Iron] 325 mg PO DAILY #30 tablet Sucralfate [Carafate] 1 gm PO QIDAC #30 tab Home Medications: Furosemide [Lasix] 40 mg PO DAILY 11/11/15 [History] Pioglitazone HCl [Actos] 15 mg PO DAILY 11/11/15 [History] Spironolactone [Aldactone] 50 mg PO DAILY 11/11/15 [History] Esomeprazole Magnesium [Nexium 24Hr] 20 mg PO DAILY 02/07/17 [History] Aruna's Leg Cramps 1 tab PO HS 02/07/17 [History] Ferrous Sulfate [Iron] 325 mg PO DAILY #30 tablet 02/11/17 [Rx] OxyCODONE Immed Rel [Roxicodone 5 MG] 5 mg PO Q8HR PRN #10 tab 02/11/17 [Rx] Sucralfate [Carafate] 1 gm PO QIDAC #30 tab 02/11/17 [Rx] Allergies/Adverse Reactions: 3 Allergy/AdvReac Type Severity Reaction Status Date / Time quinapril [From Accupril] Allergy Cough Verified 11/11/15 15:03 NSAIDS (Non-Steroidal AdvReac Gastrointestinal Verified 11/11/15 15:03 Anti-Inflamma Upset Procedures/tests Complete & Pending: Procedures Performed prior 72 hours Category Date Time Status US liver [US] Routine Exams 02/08/17 21:00 Completed IR paracentesis ultrasound [IR] Routine IR 02/11/17 Completed Date of admission: 02/08/17 04:24 Primary care physician: Michelle Tristan CNP Consults: 02/10/17 11:19 Consult to Interventional Radiology [CONS] Routine Consulting Provider: Radiology Interventional Cols Reason for Consult: possible parencentisis Call Completed: No Anticipated date of discharge: 02/11/17 - Patient Status Disposition: Home, Self-Care Condition: Fair Functional capacity at discharge: independent ambulation Overall status at discharge: patient is progressing back to baseline - Discharge Instructions Instructions: Diabetes Mellitus Type 2 in Adults (DC), Anemia (GEN) Follow Up With: Michelle Tristan CNP [Primary Care Provider] - (We have requested a follow up appointment with Michelle Tristan. The office will call you at home with an appointment date and time. ) Derrick Leblanc MD [Partnered Physician] - (We have requested a follow up appointment with Dr Leblanc. The office will call you at home with an appointment date and time.) Additional Instructions: - Advised follow-up with primary care physician in 3 days - Repeat CBC in 3 days - Return if symptoms worsen - Continue all meds as per discharge instructions - Fluid restriction of 1.5 L per day - Diet and Activity Activity: increase activity as tolerated Diet: advance to your usual diet Hospital course: Ms. Pineda is a 76 year old female with past medical history of cirrhosis, hypertension, coronary artery disease, diabetes and renal disease. Patient presented to ED with complaints of shortness of breath and bilateral lower leg edema and abdominal distention. She also complained of a 10 pound weight gain. Patient also had symptomatic anemia and she had severely low H&H. She required a total of 5 units PRBC transfusion during her stay in the hospital. Gastroenterology has evaluated the patient. EGD was done and patient required APC for gastric antral ectasia and there were also 2 nonbleeding angiom ectasia. She was started on Protonix and Carafate. H&H is now improved. Patient is now tolerating oral diet well. Ambulating well. Patient and family member including son have been explained about the patient's condition in detail. They understood and agreed. No unanswered questions. Patient has been advised to follow up with her biometric fingerprinting technician and primary care physician. Patient has been advised to repeat a CBC in 3 days time. She understood and agreed. Patient did not have any other acute events or complaints or complications during her stay in the hospital. Patient states she feels better and wants to go home today. Patient will need to continue Lasix and Aldactone at home. She will also need to be on PPI and Carafate. Patient has not had any other active bleeding. She is hemodynamically stable. H&H is stable. She has been advised to return to ER if she does develop any bleeding or any other symptoms. She understood and agreed, patient's son understood and agreed as well. Patient is being discharged in stable condition. - Time Spent with Patient Total time spent providing and/or coordinating discharge services: Greater than 30 minutes - Constitutional Vitals: Temp Pulse Resp BP Pulse Ox 97.8 F 75 16 116/65 96 02/11/17 15:56 02/11/17 15:56 02/11/17 15:56 02/11/17 15:56 02/11/17 15:56 General appearance: Present: cooperative, A&O X 3, pleasant, no acute distress, answers questions appropriately - Head Head exam: Present: atraumatic - Eye Eye exam: Present: EOMI - ENT ENT exam: Present: mucous membranes moist - Respiratory Respiratory exam: Present: CTAB. Absent: rales, rhonchi, wheezes, tachypnea - Cardiovascular Cardiovascular exam: Present: RRR, +S1, +S2 - GI/Abdominal GI/Abdominal exam: Present: distended (Ascites is now improved after paracentesis), soft. Absent: firm, guarding, tenderness - Extremities Exam Extremities exam: Present: pedal edema (Bilateral lower leg 4+ pitting edema), radial pulses palpable and symmetrical. Absent: cyanotic - Neurological Exam Neurological exam: Present: alert, oriented X3, no focal deficits. Absent: facial droop, speech deficit
== END 2017-02-11 18:59 | disposition home or self-care (01) | DRG 378 ==
LOC: EMEROO 18:22 → 3BNU 18:22
PROVIDERS: ADMIT Nurse Practitioner Family; ATTEND Nurse Practitioner Family

== ENCOUNTER 2018-06-09 16:27 | Observation (INO) ==
--- NOTE | 2018-06-09 18:16 | Emergency Department Note ---
Disposition Clinical Impression: Weakness, Symptomatic anemia Disposition: Still a Patient Condition: Fair Reasons to Return/Additional Instructions: Still a patient. Forms: ED Satisfaction Letter Time of Disposition: 18:42 General Adult HPI - General Chief complaint: ED Recheck/Abnormal Lab/Rx Stated complaint: Fatigue; dehydration Time Seen by Provider: 06/09/18 18:15 Source: patient Mode of arrival: ambulatory Limitations: no limitations Nursing Notes Reviewed: Yes Vital Signs Reviewed: Yes - History of Present Illness HPI Narrative: Mrs. Pineda is a 77yo female with PMH of cirrhosis secondary to NAFLD, T2DM, HTN, HLD and hx of anemia requiring blood transfusion. She states she was sent over from GI office this afternoon due to kidney fxn. She was recently started on Bumex about 2 wks ago and has since lost 19 lbs of water weight. She states GI said her kidney fxn was bad and that she required blood. She is complaining of lightheadedness, palpiltations, dizziness, and fatigue. Onset (ago): hour(s) - Related Data Home Medications Medication Instructions Recorded Confirmed Furosemide [Lasix] 40 mg PO DAILY 11/11/15 05/07/17 Spironolactone [Aldactone] 50 mg PO DAILY 11/11/15 05/07/17 Diclofenac Sodium [Voltaren] 1 appl TP QID PRN 05/07/17 05/07/17 Pioglitazone [Actos] 15 mg PO DAILY PRN 05/07/17 05/07/17 Previous Rx's Medication Instructions Recorded Sucralfate [Carafate] 1 gm PO QIDAC #30 tab 02/11/17 Allergies Allergy/AdvReac Type Severity Reaction Status Date / Time quinapril [From Accupril] Allergy Cough Verified 05/07/17 10:36 NSAIDS (Non-Steroidal AdvReac Gastrointestinal Verified 05/07/17 10:36 Anti-Inflamma Upset Penicillins AdvReac See Verified 05/07/17 10:36 Comments Constitutional: Reports: weakness, weight change. Denies: fever, chills Cardiovascular: Reports: palpitations, edema. Denies: chest pain, dyspnea on exertion Respiratory: Denies: cough, dyspnea Gastrointestinal: Denies: abdominal pain, nausea, vomiting, diarrhea Neurological: Reports: weakness, numbness, vertigo. Denies: headache Endocrine: Reports: fatigue Hematological/Lymphatic: Denies: easy bleeding, easy bruising Past Medical History - Past Medical History Medical history: Reports: cirrhosis, coronary artery disease, diabetes, renal disease Surgical history: Reports: appendectomy, cholecystectomy Psychiatric history: Reports: anxiety, depression - Social History Smoking Status: Never smoker Smokeless Tobacco Status: No Alcohol use: Reports: none Drug use: Reports: none Physical Exam - General Limitations: no limitations General appearance: alert, in no apparent distress - Head Head exam: atraumatic, normocephalic, normal inspection - Chest Chest inspection: Present: normal inspection, symmetric chest wall rise - Respiratory Respiratory exam: Present: normal lung sounds bilaterally - Cardiovascular Cardiovascular exam: Present: irregular rhythm - Abdominal Exam Abdominal exam: Present: soft, Non-Tender, normal bowel sounds. Absent: distention, guarding, rebound - Expanded Lower Extremity Exam Hip/Pelvis exam: Present: swelling - Neurological Exam Neurological exam: Present: alert, oriented X3 - Psychiatric Psychiatric exam: Present: normal affect, normal mood - Skin Skin exam: Present: warm, dry, intact Course Vital Signs Temperature 98.1 F 06/09/18 16:37 Pulse Rate 76 06/09/18 16:37 Respiratory Rate 16 06/09/18 16:37 Blood Pressure 149/71 06/09/18 16:37 O2 Sat by Pulse Oximetry 99 06/09/18 16:37 Temperature 98.1 F 06/09/18 16:37 Pulse Rate 76 06/09/18 16:37 Respiratory Rate 16 06/09/18 16:37 Blood Pressure 149/71 06/09/18 16:37 O2 Sat by Pulse Oximetry 99 06/09/18 16:37 Oxygen Delivery Oxygen Delivery Room Air Medical Decision Making - Medical Records Medical records reviewed: Yes I reviewed the patient's medical records.
[2018-06-09] MEDS ORDERED: 0.9 % Sodium Chloride 1,000 ML IVC ONE (18:21)
--- NOTE | 2018-06-09 18:46 | Emergency Department Note ---
Disposition Clinical Impression: Weakness, Symptomatic anemia Disposition: Still a Patient Condition: Fair Reasons to Return/Additional Instructions: Still a patient. Referrals: Michelle Tristan CNP [Primary Care Provider] - Forms: ED Satisfaction Letter General Adult HPI - General Chief complaint: ED Recheck/Abnormal Lab/Rx Stated complaint: Fatigue; dehydration Time Seen by Provider: 06/09/18 18:15 Source: patient Mode of arrival: ambulatory Limitations: no limitations - Related Data Home Medications Medication Instructions Recorded Confirmed Furosemide [Lasix] 40 mg PO DAILY 11/11/15 05/07/17 Spironolactone [Aldactone] 50 mg PO DAILY 11/11/15 05/07/17 Diclofenac Sodium [Voltaren] 1 appl TP QID PRN 05/07/17 05/07/17 Pioglitazone [Actos] 15 mg PO DAILY PRN 05/07/17 05/07/17 Previous Rx's Medication Instructions Recorded Sucralfate [Carafate] 1 gm PO QIDAC #30 tab 02/11/17 Allergies Allergy/AdvReac Type Severity Reaction Status Date / Time quinapril [From Accupril] Allergy Cough Verified 05/07/17 10:36 NSAIDS (Non-Steroidal AdvReac Gastrointestinal Verified 05/07/17 10:36 Anti-Inflamma Upset Penicillins AdvReac See Verified 05/07/17 10:36 Comments Constitutional: Reports: weakness, weight change. Denies: fever, chills Cardiovascular: Reports: palpitations, edema. Denies: chest pain, dyspnea on exertion Respiratory: Denies: cough, dyspnea Gastrointestinal: Denies: abdominal pain, nausea, vomiting, diarrhea Neurological: Reports: weakness, numbness, vertigo. Denies: headache Endocrine: Reports: fatigue Hematological/Lymphatic: Denies: easy bleeding, easy bruising Past Medical History - Past Medical History Medical history: Reports: cirrhosis, coronary artery disease, diabetes, renal disease Surgical history: Reports: appendectomy, cholecystectomy Psychiatric history: Reports: anxiety, depression - Social History Smoking Status: Never smoker Smokeless Tobacco Status: No Alcohol use: Reports: none Drug use: Reports: none Physical Exam - General Limitations: no limitations General appearance: alert, in no apparent distress Course Vital Signs Temperature 98.1 F 06/09/18 16:37 Pulse Rate 76 06/09/18 16:37 Respiratory Rate 16 06/09/18 16:37 Blood Pressure 149/71 06/09/18 16:37 O2 Sat by Pulse Oximetry 99 06/09/18 16:37 Temperature 98.1 F 06/09/18 16:37 Pulse Rate 76 06/09/18 16:37 Respiratory Rate 16 06/09/18 16:37 Blood Pressure 149/71 06/09/18 16:37 O2 Sat by Pulse Oximetry 99 06/09/18 16:37 Oxygen Delivery Oxygen Delivery Room Air Attestation Statement - Attestation Attestation: I examined this patient and my medical decision-making was reviewed with the Resident Physician. I agree with the documented findings, disposition and treatment plan as described except to the extent set forth below. 77 year old female presents to the ED with complaints of faigue and weaknss and was snt to us from Dr. Leblanc office for anemia workup and admission. WE will start cardiopulmonary workup and recheck cbc and type and screen and then montanaley transfuse one unit and IVf. Sepideh was recently put on bumex and states that she likley has GEORGETTE from the medicatio nadn feels dry as she has lost 13 pounds in water weight. Patient will be signed out to the night team (johanna) for admission
[2018-06-09 20:01] LABS: Basophils % 0.5 %; Eosinophils # 0.2 K/mcL (0.0-0.6); Eosinophils % 4.4 %; Hematocrit 22.1 % (35.3-44.9); Hemoglobin 6.9 g/dL (11.5-15.4); Immature Granulocytes % 0.2 % (0-4); Lymphocytes % 22.4 %; Mean Corpuscular HGB Conc 31.2 g/dL (31.6-35.5); Mean Corpuscular Hemoglobin 29.4 pg (28.0-33.3); Mean Platelet Volume 9.7 fL (9.4-12.4); Monocytes # 0.6 K/mcL (0.0-1.3); Monocytes % 14.7 %; Neutrophils # 2.5 K/mcL (1.6-8.9); Red Blood Count 2.35 M/mcL (3.82-4.97); Red Cell Distribution Width 16.5 % (11.5-14.5); Segmented Neutrophils % 57.8 %
[2018-06-09 20:02] LABS: Platelet Count 98 K/mcL (140-400)
--- NOTE | 2018-06-09 20:04 | Emergency Department Note ---
Disposition Clinical Impression: Weakness, Symptomatic anemia [id number] kidney injury Qualifiers: Acute renal failure type: unspecified Chronic kidney disease stage: unspecified stage Qualified Code(s): N17.9 - Acute kidney failure, unspecified Disposition: Admitted As Inpatient Condition: Fair Time of Disposition: 22:01 General Adult HPI - General Chief complaint: ED Recheck/Abnormal Lab/Rx Stated complaint: Fatigue; dehydration Time Seen by Provider: 06/09/18 18:15 Source: patient Mode of arrival: ambulatory Limitations: no limitations Nursing Notes Reviewed: Yes Vital Signs Reviewed: Yes - History of Present Illness HPI Narrative: Patient is a 77 year old female with a past medical history of liver disease, cirrhosis, and diabetes presents to the emergency department for abnormal lab values as well as generalized weakness. Patient states that partially month ago she was started on a medication, Bumex, due to fluid overload secondary to her cirrhosis and this medication was started by her GI specialist Dr. Taveras. She states since that time she has lost approximately 15-20 pounds in weight all treated to fluid losses. States that she had lab work done on the sixth and she had a follow-up appointment today and the lab work was abnormal. States that the lab work showed worsening of her kidney function and also electrolyte abnormalities and a low hemoglobin. Her physician was concerned that they have low hemoglobin in the setting of dehydration may be lower than it appears. Patient otherwise states that she just mainly feels drained all the time and becomes dyspneic with exertion. States that she is also had black stools since being put on this new medication and does not take any iron supplementation. States she intermittently feels nauseous but has no emesis. Denies being on blood thinners. - Related Data Home Medications Medication Instructions Recorded Confirmed RX: Spironolactone [Aldactone] 50 mg PO DAILY 11/11/15 06/09/18 Diclofenac Sodium [Voltaren] 1 appl TP QID PRN 05/07/17 06/09/18 Aspirin [Adult Aspirin Regimen] 81 mg PO DAILY 06/09/18 06/09/18 Bumetanide 2 mg PO DAILY 06/09/18 06/09/18 Esomeprazole Magnesium [Nexium] 20 mg PO DAILY 06/09/18 06/09/18 Allergies Allergy/AdvReac Type Severity Reaction Status Date / Time quinapril [From Accupril] Allergy Cough Verified 05/07/17 10:36 NSAIDS (Non-Steroidal AdvReac Gastrointestinal Verified 05/07/17 10:36 Anti-Inflamma Upset Penicillins AdvReac See Verified 05/07/17 10:36 Comments All systems ED: reviewed and negative except as stated. Review of Systems: As Per HPI Constitutional: Reports: weakness, weight change. Denies: fever, chills Cardiovascular: Reports: palpitations, edema. Denies: chest pain, dyspnea on exertion Respiratory: Denies: cough, dyspnea Gastrointestinal: Reports: melena. Denies: abdominal pain, nausea, vomiting, diarrhea Neurological: Reports: weakness. Denies: headache Endocrine: Reports: fatigue Hematological/Lymphatic: Denies: easy bleeding, easy bruising Past Medical History - Past Medical History Attestation: Yes The following information was validated with the patient. Medical history: Reports: cirrhosis, coronary artery disease, diabetes, renal disease Surgical history: Reports: appendectomy, cholecystectomy Psychiatric history: Reports: anxiety, depression - Social History Smoking Status: Never smoker Smokeless Tobacco Status: No Alcohol use: Reports: none Drug use: Reports: none Physical Exam - General Limitations: no limitations General appearance: alert, in no apparent distress - Head Head exam: atraumatic, normocephalic, normal inspection - Eye Eye exam: Present: normal appearance, PERRL, EOMI - ENT ENT exam: normal exam, normal oropharynx, mucous membranes dry - Neck Neck exam: Present: normal inspection, full ROM, trachea midline - Chest Chest inspection: Present: normal inspection, symmetric chest wall rise. Absent: tenderness - Respiratory Respiratory exam: Present: normal lung sounds bilaterally. Absent: respiratory distress, wheezes - Cardiovascular Cardiovascular exam: Present: regular rate, normal rhythm, normal heart sounds, +S1, +S2 - Abdominal Exam Abdominal exam: Present: Non-Tender, distention, normal bowel sounds. Absent: tenderness, guarding, rebound, rigidity - Rectal Exam Assembler Faucets present during exam: Yes (Hanna Anaya) Rectal exam: Present: normal inspection, normal rectal tone, hemorrhoids, other (brown stool, no gross blood appreciated ion digital exam of rectal vault) - Extremities Exam Extremities exam: Present: full ROM, pedal edema (with chronic venous stasis changes). Absent: tenderness, calf tenderness - Back Exam Back exam: Present: normal inspection, full ROM. Absent: tenderness - Neurological Exam Neurological exam: Present: alert, oriented X3. Absent: motor sensory deficit - Psychiatric Psychiatric exam: Present: normal affect, normal mood - Skin Skin exam: Present: warm, dry, intact, normal color (except as stated in extremity exam) Course Course Narrative: Patient laboratory performed on May [id number] which revealed a hemoglobin of 8.2, creatinine of 2.39 which the patient appears to have chronic elevation of her creatinine however this is the highest is ever been. She had a recent liver ultrasound on 06/06/18 which showed cirrhosis with small volume of asc ites. She is also recently evaluated by cardiology in which she had an echo performed that showed an EF of 60% with left ventricular diastolic dysfunction. Has had mild mitral regurg. Hx of evaluation for anemia with cause attributed to variceal bleeding with EGD last peformed according to our records in 04/11/16 which confirmed esophageal varices. Given the patient's past medical history plan is times evaluate her for possible anemia as well as dehydration and electrolyte abnormalities. I reevaluated the patient received 1 L of normal saline. She is in no acute distress at this time on rectal exam she had no acute bleeding. - Reevaluation(s) Reevaluation #1: Patient found to have a hgb of 6.9. 1 unit of pRBCs ordered for transfusion. Discussed result with patient. Time: 20:26 Reevaluation #2: Discussed the patient's case with the hospitalist on-call, Dr. Hunter, and he agrees to admit the patient for further evaluation of her anemia and weakness. Patient states she is feeling improved after the 1 L of normal saline. I discussed the findings with the patient and transfusion plans the patient agrees. Time: 22:01 Vital Signs Temperature 98.1 F 06/09/18 16:37 Pulse Rate 76 06/09/18 16:37 Respiratory Rate 16 06/09/18 16:37 Blood Pressure 149/71 06/09/18 16:37 O2 Sat by Pulse Oximetry 99 06/09/18 16:37 Temperature 98.1 F 06/09/18 21:48 Pulse Rate 76 06/09/18 21:48 Respiratory Rate 16 06/09/18 21:48 Blood Pressure 149/71 06/09/18 21:48 O2 Sat by Pulse Oximetry 99 06/09/18 21:48 Oxygen Delivery Oxygen Delivery Room Air Medical Decision Making - Medical Records Medical records reviewed: Yes I reviewed the patient's medical records. - Lab Data Lab results reviewed: Yes I reviewed the patient's lab results. Result diagrams: 06/09/18 19:47 06/09/18 19:47 Lab Results 06/09/18 06/09/18 06/09/18 Range/Units 19:47 19:47 19:47 WBC 4.3 (4.3-11.1) K/mcL RBC 2.35 L (3.82-4.97) M/mcL Hgb 6.9 L (11.5-15.4) g/dL Hct 22.1 L (35.3-44.9) % MCV 94.0 (83.0-100.0) fL MCH 29.4 (28.0-33.3) pg MCHC 31.2 L (31.6-35.5) g/dL RDW 16.5 H (11.5-14.5) % Plt Count 98 L (140-400) K/mcL MPV 9.7 (9.4-12.4) fL Immature Gran % 0.2 (0-4) % Seg Neutrophils % 57.8 % Lymphocytes % 22.4 % Monocytes % 14.7 % Eosinophils % 4.4 % Basophils % 0.5 % Neutrophils # 2.5 (1.6-8.9) K/mcL Lymphocytes # 1.0 (0.6-4.6) K/mcL Monocytes # 0.6 (0.0-1.3) K/mcL Eosinophils # 0.2 (0.0-0.6) K/mcL Basophils # 0.0 (0.0-0.2) K/mcL PT 14.5 H (9.4-12.1) Seconds INR 1.3 Sodium (136-145) mEq/L Potassium (3.5-5.1) mEq/L Chloride (98-107) mEq/L Carbon Dioxide (23-29) mEq/L BUN (8-23) mg/dL Creatinine (0.60-1.20) mg/dL Est GFR ( Amer) (> 60) Est GFR (Non-Af Amer) (> 60) BUN/Creatinine Ratio (6-26) Glucose (70-105) mg/dL Calculated Osmolality (280-300) Calcium (8.6-10.3) mg/dL Total Bilirubin (0.3-1.0) mg/dL AST (13-39) Units/L ALT (7-52) Units/L Alkaline Phosphatase (34-104) Units/L Troponin I (< 0.04) ng/mL Serum Total Protein (6.4-8.9) g/dL Albumin (3.5-5.7) g/dL Globulin (2.4-3.5) g/dL Albumin/Globulin Ratio (1.1-2.2) Urine Color (Yellow) Urine Clarity (Clear) Urine pH (5.0-8.0) pH Units Ur Specific Hard[place] (1.010-1.025) Urine Protein (Neg-Trace) mg/dL Urine Glucose (UA) (Normal) mg/dL Urine Ketones (Negative) mg/dL Urine Blood (Negative) Urine Nitrite (Negative) Urine Bilirubin (Negative) Urine Urobilinogen (Normal) mg/dL Ur Leukocyte Esterase (Negative) Ur Culture Indicated? (NO) Stool Occult Bld Scrn (Negative) Blood Type A NEGATIVE Antibody Screen NEGATIVE Crossmatch See Detail 06/09/18 06/09/18 06/09/18 Range/Units 19:47 20:13 20:40 WBC (4.3-11.1) K/mcL RBC (3.82-4.97) M/mcL Hgb (11.5-15.4) g/dL Hct (35.3-44.9) % MCV (83.0-100.0) fL MCH (28.0-33.3) pg MCHC (31.6-35.5) g/dL RDW (11.5-14.5) % Plt Count (140-400) K/mcL MPV (9.4-12.4) fL Immature Gran % (0-4) % Seg Neutrophils % % Lymphocytes % % Monocytes % % Eosinophils % % Basophils % % Neutrophils # (1.6-8.9) K/mcL Lymphocytes # (0.6-4.6) K/mcL Monocytes # (0.0-1.3) K/mcL Eosinophils # (0.0-0.6) K/mcL Basophils # (0.0-0.2) K/mcL PT (9.4-12.1) Seconds INR Sodium 142 (136-145) mEq/L Potassium 4.0 (3.5-5.1) mEq/L Chloride 106 (98-107) mEq/L Carbon Dioxide 29 (23-29) mEq/L BUN 44 H (8-23) mg/dL Creatinine 2.10 H (0.60-1.20) mg/dL Est GFR ( Amer) 28 L (> 60) Est GFR (Non-Af Amer) 23 L (> 60) BUN/Creatinine Ratio 21 (6-26) Glucose 107 H (70-105) mg/dL Calculated Osmolality 306 H (280-300) Calcium 8.8 (8.6-10.3) mg/dL Total Bilirubin 2.1 H (0.3-1.0) mg/dL AST 34 (13-39) Units/L ALT 15 (7-52) Units/L Alkaline Phosphatase 76 (34-104) Units/L Troponin I < 0.03 (< 0.04) ng/mL Serum Total Protein 7.2 (6.4-8.9) g/dL Albumin 2.5 L (3.5-5.7) g/dL Globulin 4.7 H (2.4-3.5) g/dL Albumin/Globulin Ratio 0.5 L (1.1-2.2) Urine Color Yellow (Yellow) Urine Clarity Clear (Clear) Urine pH 6.0 (5.0-8.0) pH Units Ur Specific Hardwick 1.010 (1.010-1.025) Urine Protein Negative (Neg-Trace) mg/dL Urine Glucose (UA) Normal (Normal) mg/dL Urine Ketones Negative (Negative) mg/dL Urine Blood Negative (Negative) Urine Nitrite Negative (Negative) Urine Bilirubin Negative (Negative) Urine Urobilinogen Normal (Normal) mg/dL Ur Leukocyte Esterase Negative (Negative) Ur Culture Indicated? NO (NO) Stool Occult Bld Scrn Positive A (Negative) Blood Type Antibody Screen Crossmatch - Radiology Data Radiology results reviewed: Yes I reviewed the patient's radiology results. Chest X-Ray 06/09/18 18:21 IMPRESSION: No acute findings in the chest D/ / Perla Melvin MD / Perla Melvin MD Interpreting Provider: Perla Melvin MD - EKG Data EKG #1 EKG attestation: Yes I reviewed and interpreted this EKG. EKG results narrative: EKG done at 18:43 shows sinus rhythm at a rate of 69 bpm. Normal axis. Intervals within normal limits. Patient has occasional PAC. Q waves in the anterior leads. Otherwise no signs of ischemia and no STEMI. Critical Care Time Critical Care Time: Yes Total Critical Care Time: 33 Attestation: Acute upper GI bleed with anemia requiring blood transfusion. Attestation Statement - Attestation Attestation: Dr. Lozada note: Patient seen in conjunction with resident Dr. Gonzalez. Please see his charting for complete documentation. I spent [id number] time with the patient and I agree with patient's treatment in this position. Acute upper GI bleed with anemia requiring transfusion. Blood count noted. Vital signs stable. Baseline mental status. Transfusion ordered. Admission indicated.
[2018-06-09 20:17] LABS: INR 1.3; Prothrombin Time 14.5 Seconds (9.4-12.1)
[2018-06-09 20:20] LABS: Troponin I < 0.03 ng/mL (< 0.04)
[2018-06-09 20:51] LABS: Bilirubin,Urine Negative (Negative); Blood,Urine Negative (Negative); Clarity,Urine Clear (Clear); Color,Urine Yellow (Yellow); Glucose,Urine (UA) Normal (Normal); Ketones,Urine Negative (Negative); Leukocyte Esterase,Urine Negative (Negative); Nitrite,Urine Negative (Negative); Protein,Urine Negative (Neg-Trace); Urobilinogen,Urine Normal (Normal)
[2018-06-09 21:15] LABS: Alanine Aminotransferase 15 Units/L (7-52); Albumin 2.5 g/dL (3.5-5.7); Albumin/Globulin Ratio 0.5 (1.1-2.2); Alkaline Phosphatase 76 Units/L (34-104); Aspartate Amino Transferase 34 Units/L (13-39); BUN/Creatinine Ratio 21 (6-26); Bilirubin,Total 2.1 mg/dL (0.3-1.0); Blood Urea Nitrogen 44 mg/dL (8-23); Calcium 8.8 mg/dL (8.6-10.3); Carbon Dioxide 29 mEq/L (23-29); Chloride 106 mEq/L (98-107); Globulin 4.7 g/dL (2.4-3.5); Glucose 107 mg/dL (70-105); Osmolality,Calculated 306 (280-300); Sodium 142 mEq/L (136-145); Total Protein 7.2 g/dL (6.4-8.9); eGFR For Non-African Americans 23 (> 60)
[2018-06-09] MEDS ORDERED: 0.9 % Sodium Chloride 250 ML ONE (23:03)
[2018-06-10 03:11] LABS: Hematocrit 20.6 % (35.3-44.9); Hemoglobin 6.6 g/dL (11.5-15.4); Mean Corpuscular Hemoglobin 29.7 pg (28.0-33.3); Mean Corpuscular Volume 92.8 fL (83.0-100.0); Mean Platelet Volume 10.4 fL (9.4-12.4); Red Blood Count 2.22 M/mcL (3.82-4.97); Red Cell Distribution Width 16.9 % (11.5-14.5)
[2018-06-10 03:27] LABS: Albumin/Globulin Ratio 0.5 (1.1-2.2); Bilirubin,Total 2.3 mg/dL (0.3-1.0); Calcium 8.2 mg/dL (8.6-10.3); Globulin 3.9 g/dL (2.4-3.5); Total Protein 5.9 g/dL (6.4-8.9)
[2018-06-10] MEDS ORDERED: 0.9 % Sodium Chloride 250 ML ONE ×2 (06:27→10:33)
[2018-06-10] MEDS ORDERED: Naloxone 0.4 MG/ML INJ IVP PRN (06:47)
[2018-06-10] MEDS ORDERED: *HR* Dextrose 50 % in Water (Syg) 50 ML SYRINGE IVP PRN (06:51)
[2018-06-10] MEDS ORDERED: D5% in Water 1,000 ML IVC PRN (06:51)
[2018-06-10] MEDS ORDERED: Dextrose Gel 15 GM/37.5 ML TUBE PO PRN ×2 (06:51)
--- NOTE | 2018-06-10 07:10 | Internal Med History&Physical ---
Date of Encounter: 06/10/18 Time of Encounter: 02:35 Internal Medicine - H&P: HPI Chief complaint: GI bleed Admitted From: Emergency Dept Plans for Post Hospital Care: Home History of present illness: Ms. Pineda is a 77 year old female Patient was at her GI providers office this afternoon, for management of medication that was recently started. She was put on Bumex and had lost 19 pounds of water weight. She has been having worsening kidney function, has a history of variceal bleeds and cirrhosis. She is also been having generalized weakness. She was started on Bumex due to fluid overload secondary to cirrhosis which is managed by . Lab work performed indicated low hemoglobin and worsening kidney function thus she was sent to the ER for further management. In the ER patient's hemoglobin was 6.9 and platelets of 9.8. Patient's INR was 1.3. Patient's BMP Showed a creatinine of 2.10. Urinalysis was negative and chest x-ray showed no acute abnormalities. Occult blood positive. She was transfused 1 unit of PRBCs and sent to the medical floor for further management. Upon my evaluation, patient is in no acute distress. She states that she has not had any vomiting, but has had dark stools. She denies nausea, chest pain, shortness of breath, abdominal pain, diarrhea and constipation. Past Med Surg Social Fam HX - Past Medical History Medical history: cirrhosis, coronary artery disease, diabetes, renal disease Additional medical history: esophageal varisies,colon polyps,diverticulosis Psychiatric history: anxiety, depression - Past Surgical History Surgical History: appendectomy, cholecystectomy Additional surgical history: LEFT SHOULDER FX WITH SURGICAL REPAIR,tubal,d/c,cardiac cath - Social History Smoking Status: Never smoker Smokeless Tobacco Status: No Alcohol use: none Drug use: none - Family History Mother Living Status: Hx Family GI Disorders: No Father Living Status: Hx Family GI Disorders: No Internal Medicine - H&P: Meds Spironolactone [Aldactone] 50 mg PO DAILY 11/11/15 [History] Diclofenac Sodium [Voltaren] 1 appl TP QID PRN 05/07/17 [History] Aspirin [Adult Aspirin Regimen] 81 mg PO DAILY 06/09/18 [History] Bumetanide 2 mg PO DAILY 06/09/18 [History] Esomeprazole Magnesium [Nexium] 20 mg PO DAILY 06/09/18 [History] Allergy/AdvReac Type Severity Reaction Status Date / Time quinapril [From Accupril] Allergy Cough Verified 05/07/17 10:36 NSAIDS (Non-Steroidal AdvReac Gastrointestinal Verified 05/07/17 10:36 Anti-Inflamma Upset Penicillins AdvReac See Verified 05/07/17 10:36 Comments All Systems PM: A 10-system review of systems was performed and is negative for pertinent findings except as documented above in the HPI. - Constitutional Vitals: Temp Pulse Resp BP Pulse Ox 98.5 F 70 15 136/63 99 06/10/18 06:43 06/10/18 06:43 06/10/18 06:43 06/10/18 06:43 06/10/18 06:37 General appearance: Present: cooperative, A&O X 3, pleasant, no acute distress, answers questions appropriately Exam: - - Head Head exam: Present: normal inspection - Eye Eye exam: Present: EOMI, normal appearance. Absent: conjuntiva pink Additional comments: Pale conjuntiva - Respiratory Respiratory exam: Present: CTAB. Absent: respiratory distress, wheezes - Cardiovascular Cardiovascular exam: Present: RRR. Absent: diastolic murmur, systolic murmur - GI/Abdominal GI/Abdominal exam: Present: normal bowel sounds, soft. Absent: tenderness - Extremities Exam Extremities exam: Present: warm, radial pulses palpable and symmetrical. Absent: calf tenderness, pedal edema, tenderness - Neurological Exam Neurological exam: Present: no focal deficits, strengths equal and symetr throughout. Absent: motor sensory deficit, facial droop, speech deficit - Skin Skin exam: Present: dry, normal color, pallor, warm Internal Med - H&P Results - Labs CBC & Chem 7: 06/10/18 02:56 06/10/18 02:56 Labs: Short CBC 06/09/18 06/10/18 Range/Units 19:47 02:56 WBC 4.3 3.2 L (4.3-11.1) K/mcL Hgb 6.9 L 6.6 L (11.5-15.4) g/dL Hct 22.1 L 20.6 L (35.3-44.9) % Plt Count 98 L 78 L (140-400) K/mcL Neutrophils # 2.5 (1.6-8.9) K/mcL BMP 06/09/18 06/10/18 19:47 02:56 Sodium 142 142 Potassium 4.0 4.0 Chloride 106 110 H Carbon Dioxide 29 27 BUN 44 H 41 H Creatinine 2.10 H 1.84 H Glucose 107 H 95 Calcium 8.8 8.2 L Cardiac Enzymes 06/09/18 Range/Units 19:47 Troponin I < 0.03 (< 0.04) ng/mL Liver Function 06/09/18 06/10/18 Range/Units 19:47 02:56 Total Bilirubin 2.1 H 2.3 H (0.3-1.0) mg/dL AST 34 28 (13-39) Units/L ALT 15 12 (7-52) Units/L Alkaline Phosphatase 76 61 (34-104) Units/L Albumin 2.5 L 2.0 L (3.5-5.7) g/dL Urine 06/09/18 Range/Units 20:40 Urine Color Yellow (Yellow) Urine Clarity Clear (Clear) Urine pH 6.0 (5.0-8.0) pH Units Ur Specific [place] 1.010 (1.010-1.025) Urine Protein Negative (Neg-Trace) mg/dL Urine Glucose (UA) Normal (Normal) mg/dL - Impressions ITS Impressions Chest X-Ray 06/09/18 18:21 IMPRESSION: No acute findings in the chest D/ / Perla Melvin MD / Perla Melvin MD Interpreting Provider: Perla Melvin MD - Assessment and plan (1) UGI bleed Current Visit: No Status: Acute Assessment and plan: Likely the cause of her blood loss anemia. GI consult today Transfusing 2 units currently Recheck hemoglobin at 9am. NPO (2) Symptomatic anemia Current Visit: Yes Status: Acute Assessment and plan: Patient has had weakness, and known variceal bleed. Hemoglobin was 6.9. Typed and screened in the ER, 1 unit transfused. Recheck showed a decrease of 6.6. 2 additional units ordered. Recheck hemoglobin at 9 GI consult Continue to monitor. (3) Type 2 diabetes mellitus Current Visit: No Status: Chronic Assessment and plan: Monitor sugars Q6H Low dose insulin sliding scale as needed. NPO Qualifiers: Diabetes mellitus senior living insulin use: without senior living use Diabetes mellitus complication status: with other specified complication Qualified Code(s): E11.69 - Type 2 diabetes mellitus with other specified complication (4) Cirrhosis Current Visit: No Status: Chronic Assessment and plan: Patient states her cirrhosis is secondary to diabetes. Follow with GI Continue to monitor Qualifiers: Hepatic cirrhosis type: unspecified hepatic cirrhosis Ascites presence: without ascites Qualified Code(s): K74.60 - Unspecified cirrhosis of liver (5) Melena Current Visit: No Status: Acute Assessment and plan: Known variceal bleed. GI consult today Monitor for signs of bleeding. (6) Weakness Current Visit: Yes Status: Acute Assessment and plan: Secondary to anemia Treatment as above. (7) Mgpax-wf-ecxejoq kidney injury Current Visit: Yes Status: Acute Assessment and plan: Secondary to medications, improved with IV hydration Repeat labs in the morning. Qualifiers: Acute renal failure type: unspecified Chronic kidney disease stage: unspecified stage Qualified Code(s): N17.9 - Acute kidney failure, unspecified; N18.9 - Chronic kidney disease, unspecified (8) DVT prophylaxis Current Visit: No Status: Acute Assessment and plan: SCDs - Time Spent With Patient Total time spent is greater than 50% in coordination of care (as documented) at patient's floor/unit and/or counseling patient: Greater than 35 minutes
[2018-06-10 09:30] LABS: Hematocrit 23.7 % (35.3-44.9); Hemoglobin 7.7 g/dL (11.5-15.4); Mean Corpuscular HGB Conc 32.5 g/dL (31.6-35.5); Mean Corpuscular Hemoglobin 29.5 pg (28.0-33.3); Mean Corpuscular Volume 90.8 fL (83.0-100.0); Mean Platelet Volume 10.2 fL (9.4-12.4); Red Blood Count 2.61 M/mcL (3.82-4.97); Red Cell Distribution Width 16.7 % (11.5-14.5)
--- NOTE | 2018-06-10 10:25 | Gastroenterology Consult Note ---
Date of Encounter: 06/10/18 Time of Encounter: 09:30 - Assessment and plan (1) Cirrhosis Current Visit: Yes Status: Chronic Assessment and plan: Cirrhosis, Child-oconnell class B. MELD-Na 18 Patient does have history of grade 2 esophageal varices She does present with markedly low albumin of 2.0 Qualifiers: Hepatic cirrhosis type: unspecified hepatic cirrhosis Ascites presence: without ascites Qualified Code(s): K74.60 - Unspecified cirrhosis of liver (2) UGI bleed Current Visit: Yes Status: Acute Assessment and plan: upper GI bleed likely secondary to variceal bleeding. Hemoglobin 6.6 on arrival, Positive Hemoccult Continue monitor CBC, transfuse PRBC as needed EGD today to evaluate known varices (3) Vowfo-gx-uapaxul kidney injury Current Visit: Yes Status: Acute Assessment and plan: acute kidney injury on chronic kidney disease stage III Serum creatinine 1.84 on arrival, baseline 1.5 Patient making adequate urine, management per primary team Qualifiers: Acute renal failure type: unspecified Chronic kidney disease stage: unspecified stage Qualified Code(s): N17.9 - Acute kidney failure, unspecified; N18.9 - Chronic kidney disease, unspecified - Time Spent With Patient Total time spent is greater than 50% in coordination of care (as documented) at patient's floor/unit and/or counseling patient: GI History of Present Illness - Data of Consult Patient: known to practice within the last 3 years Consult date: 06/10/18 Requesting Physician: Nilton Cruz - Consult Narrative Reason for consult: Anemia History of present illness: Ms. Pineda is a 77 year old female with history of cirrhosis, CAD, CKD, variceal bleeding who presented to the ED from a GI office due to anemia. The patient apparently was seen at her GI office yesterday due to one month history of severe fatigue. The patient states that for approximately one month she has beenexperiencing extreme fatigue and has been too tired to complete her typical daily activities. She says that this has happened before and in those cases it has been due to variceal bleeding due to her cirrhosis. In addition of this, she complains of severe nausea and she has also noticed extremely dark stools. She has not noticed any vomiting although she does have a constant feeling as though she will vomit. She also has not had any hematochezia. She does take Tylenol for pain, but she avoids any [id number]-tgd-pwnksoh NSAIDs. She does take baby aspirin per her ladies' locker room attendant but she does not take any anticoagulation otherwise. She has had minimal shortness of breath but otherwise she has had no other symptoms. She reports no significant abdominal pain. She did reports no changes in her appetite or ability to eat. Overall her most concerning symptom is again, this extreme fatigue that she has been dealing with. She was seen at the GI office at which time labs were ordered and she was found to have a hemoglobin of 6.6 so she was sent to the ER. In the hospital she was given a total of 3 units of packed red blood cells and she was placed on Protonix twice a day IV push. The patient has had multiple EGDs in the past demonstrating nonbleeding gastric ulcers, gastric antral vascular ectasias, and portal hypertension gastropathy as well as grade 2 esophageal varices. EGD: 05/07/17 Past Med Surg Social Fam HX - Past Medical History Medical history: cirrhosis, coronary artery disease, diabetes, renal disease Additional medical history: esophageal varisies,colon polyps,diverticulosis Psychiatric history: anxiety, depression - Past Surgical History Surgical History: appendectomy, cholecystectomy Additional surgical history: LEFT SHOULDER FX WITH SURGICAL REPAI R,tubal,d/c,cardiac cath - Social History Smoking Status: Never smoker Smokeless Tobacco Status: No Alcohol use: none Drug use: none - Family History Mother Living Status: Hx Family GI Disorders: No Father Living Status: Hx Family GI Disorders: No Review of Systems: Constitutional: Denies fevers, chills. Admits to weight loss, generalized fatigue Head/Neck: Denies FRANK, neck stiffness EENT: Denies vision changes/blurriness, rhinorrhea, congestion, sore throat CVS: Denies chest pain, palpitations, RODNEY, orthopnea, edema, PND Pulm: Denies SOB, cough, sputum, hemoptysis, wheezing GI: Denies abdominal pain, vomiting, diarrhea, constipation, hematemasis. Admits to nausea and melena : Denies dysuria, increased frequency, urgency, hematuria Heme: Admits to ease of bleeding or bruising MSK: Denies joint pain, limited ROM Skin: Denies rashes, ulcers, color changes Neuro: Denies FRANK, paresthesias, focal deficits, ataxia - Constitutional Vitals: Temp Pulse Resp BP Pulse Ox 97.8 F 55 14 132/63 99 06/10/18 09:11 06/10/18 09:11 06/10/18 09:11 06/10/18 09:11 06/10/18 09:11 Exam: Gen: Vitals noted. No acute distress. Eyes: anicteric sclerae, moist conjunctivae; no lid-lag; Pupils equal and react eliud to light HENT: Atraumatic; oropharynx clear with moist mucous membranes and no mucosal ulcerations; normal hard and soft palate Neck: Trachea midline; supple, no thyromegaly or lymphadenopathy Cardiac: RRR, 2/6 systolic murmur, +S1/S2 Pulmonary: CTA bilaterally, no wheezes, rales or rhonchi, equal chest expansion Abdomen: soft, Mild tenderness to palpation in the RUQ, no guarding. No masses or hepatosplenomegaly MSK: ROM intact, no joint swelling noted Extremities: 2+ BLE edema, nontender calf, no cyanosis or clubbing. Evidence of stasis Skin: Normal temperature, turgor and texture; no rash, ulcers or subcutaneous nodules Neuro: moves all extremities, no focal deficits. Psych: Appropriate mood and behavior. A&Ox3 Results - Labs CBC & Chem 7: 06/10/18 09:15 06/10/18 02:56 Labs: Last Result Calcium 8.2 mg/dL (8.6-10.3) L 06/10/18 02:56 Troponin I < 0.03 ng/mL (< 0.04) 06/09/18 19:47 Entire Visit Hgb 7.7 g/dL (11.5-15.4) L 06/10/18 09:15 Hct 23.7 % (35.3-44.9) L 06/10/18 09:15 PT 14.5 Seconds (9.4-12.1) H 18 19:47 Total Bilirubin 2.3 mg/dL (0.3-1.0) H 06/10/18 02:56 AST 28 Units/L (13-39) 06/10/18 02:56 ALT 12 Units/L (7-52) 06/10/18 02:56 - ABG ABG results: PT/INR, D-dimer PT 14.5 Seconds (9.4-12.1) H 06/09/18 19:47 - Impressions Impressions Chest X-Ray 06/09/18 18:21 IMPRESSION: No acute findings in the chest D/ / Perla Melvin MD / Perla Melvin MD Interpreting Provider: Perla Melvin MD Consult Discharge Plan - Plan Referrals: Michelle Tristan, HOME APPLIANCE INSTALLER [Primary Care Provider] -
[2018-06-10] MEDS: Insulin LISPRO 300 UNITS/3 ML VIAL SQ SCH ×2 (12:26→17:12)
[2018-06-10] MEDS ORDERED: *HR* Propofol 200 MG/20 ML VIAL IVP ONE (14:26)
--- NOTE | 2018-06-10 14:40 | Anesthesia Evaluation PreOp ---
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 History: Denies Any Significant HX Other Medical History: Hepatic (liver failure, cirrhosis, esophageal varices), Renal (ckd), Bleeding (GI bleed (variceal)), Diabetes Type II (oral medications only) Anesthesia History: No Prior Anesthetic Complications (except sodium pentothal) Alcohol Use: none Drug use: none Medications and Allergies Spironolactone [Aldactone] 50 mg PO DAILY 11/11/15 [History] Diclofenac Sodium [Voltaren] 1 appl TP QID PRN 05/07/17 [History] Aspirin [Adult Aspirin Regimen] 81 mg PO DAILY 06/09/18 [History] Bumetanide 2 mg PO DAILY 06/09/18 [History] Esomeprazole Magnesium [Nexium] 20 mg PO DAILY 06/09/18 [History] Allergy/AdvReac Type Severity Reaction Status Date / Time quinapril [From Accupril] Allergy Cough Verified 05/07/17 10:36 NSAIDS (Non-Steroidal AdvReac Gastrointestinal Verified 05/07/17 10:36 Anti-Inflamma Upset Penicillins AdvReac See Verified 05/07/17 10:36 Comments - Meds/Allergy Pre-op Review Medications Reviewed: Yes Allergies Reviewed: Yes Beta Blockers on Current Med List: No Anesthesia Results - Labs 06/10/18 09:15 06/10/18 02:56 - Imaging EKG: report reviewed, image reviewed (SINUS RHYTHM WITH OCCASIONAL SUPRA VENTRICULAR PREMATURE COMPLEXES BORDERLINE LEFT AXIS DEVIATION MODERATE VOLTAGE CRITERIA FOR LVH, CONSIDER NORMAL VARIANT NONSPECIFIC T-WAVE ABNORMALITY) Additional studies: TTE: Impressions: LVEF 60%. Mild left ventricular diastolic dysfunction. Normal right ventricular structure and function. Mild mitral regurgitation. No pulmonary hypertension. Anesthesia Exam Last Vital Signs Temp 98.1 F 06/10/18 14:22 Pulse 70 06/10/18 14:22 Resp 16 06/10/18 14:22 BP 159/61 06/10/18 14:22 Pulse Ox 100 06/10/18 14:22 Height: > 8 hrs Weight: 91 kg - HEENT Pupil (Motor): Pupils equal, EOMI Mallampati: II Teeth: Normal Oral Opening: Greater than 3 - PRODUCT MARKETING PROGRAMS MANAGER LOC: Oriented - Cardiac Rhythm: Regular Murmur: None - Pulmonary Breath Sounds: bilateral Clear Respiratory Effort: Symmetrical Anesthesia Assess/Plan ASA Score: 4 Level of consciousness: Cooperative Anesthetic Plan: MAC Monitoring Plan: Standard Monitors Recovery Plan: PACU
--- NOTE | 2018-06-10 15:17 | Anesthesia Evaluation Post Op ---
Date of Encounter: 06/10/18 Time of Encounter: 15:00 - Vital Signs Vital Signs: Vital Signs Time 1500 BP 159/68 Pulse 70 Resp 14 O2 Sat 100 - Lungs Lungs: Clear Ascult./Percussion - Airway Airway: Non-obstructed - Cardiovascular Regular Rate - Mental Status Mental Status: Alert & Oriented, Answers Appropriately - Nausea Vomiting Nausea Vomiting: Not Present - Hydration Hydration: NPO, Has not voided - Discharge PostOp Status: Transfer Patient to floor
[2018-06-10] MEDS: Pantoprazole 40 MG VIAL IVP SCH (17:12)
--- NOTE | 2018-06-10 17:53 | Electrocardiograph Report ---
[address] [address] Test Date: 2018-06-09 Pat Name: Darlene Pineda Department: [id number] Room: 3A42 Gender: F Labor Custodian: : 1940 Requested By: Kami Jones Order Number: [id number] Reading MD: Maisha Donahue Measurements Intervals [place] Rate: 69 P: 48 NH: 197 QRS: -22 QRSD: 76 T: 58 QT: 420 QTc: 450 Interpretive Statements Sinus rhythm with atrial premature complex Low voltage, precordial leads Left ventricular hypertrophy Poor R wave progression Electronically Signed On 06-10-2018 17:51:58 EST by Maisha Donahue
[2018-06-11] MEDS: Insulin LISPRO 300 UNITS/3 ML VIAL SQ SCH ×3 (00:09→12:19)
[2018-06-11] MEDS: Pantoprazole 40 MG VIAL IVP SCH (05:13)
[2018-06-11] MEDS ORDERED: BENZOCAINE/MENTHOL 1 LOZENGE (BAG OF 6) MM PRN (05:19)
[2018-06-11 08:08] LABS: Albumin 2.1 g/dL (3.5-5.7); Albumin/Globulin Ratio 0.6 (1.1-2.2); Bilirubin,Total 3.4 mg/dL (0.3-1.0); Calcium 8.3 mg/dL (8.6-10.3); Globulin 3.8 g/dL (2.4-3.5); Potassium 4.3 mEq/L (3.5-5.1); Total Protein 5.9 g/dL (6.4-8.9)
[2018-06-11 08:30] LABS: Eosinophils # 0.2 K/mcL (0.0-0.6); Hematocrit 25.5 % (35.3-44.9); Hemoglobin 8.2 g/dL (11.5-15.4); Immature Platelets 1.2 % (1.1-6.1); Mean Corpuscular HGB Conc 32.2 g/dL (31.6-35.5); Mean Corpuscular Hemoglobin 28.7 pg (28.0-33.3); Mean Corpuscular Volume 89.2 fL (83.0-100.0); Red Blood Count 2.86 M/mcL (3.82-4.97); Red Cell Distribution Width 18.9 % (11.5-14.5)
[2018-06-11 08:42] LABS: Platelet Count 85 K/mcL (140-400)
[2018-06-11 09:00] LABS: Lymphocytes # 0.8 K/mcL (0.6-4.6); Monocytes # 0.3 K/mcL (0.0-1.3); Neutrophils # 2.7 K/mcL (1.6-8.9)
[2018-06-11 09:01] LABS: Anisocytosis 1+ (Not Present); Hypochromasia Present (Not Present); Platelet Estimate Decreased (Normal)
[2018-06-11 11:45] VITALS: BP 133/42
--- NOTE | 2018-06-11 13:20 | Discharge Summary ---
Orders not resulted at time of discharge: Pending orders 06/12/18 04:00 CBC [Complete Blood Count] [HEME] AM 0400 CMP [Comprehensive Metabolic Panel] AM 0400 06/13/18 04:00 CBC [Complete Blood Count] [HEME] AM 0400 CMP [Comprehensive Metabolic Panel] AM 0400 Date of Encounter: 06/11/18 Time of Encounter: 13:18 - Discharge Diagnosis (1) UGI bleed Priority: Primary Status: Acute (2) Varices, esophageal Priority: Primary Status: Chronic Qualifiers: Esophageal varices type: secondary Esophageal varices bleeding: without bleeding Qualified Code(s): I85.10 - Secondary esophageal varices without bleeding (3) Cirrhosis Priority: Primary Status: Chronic Qualifiers: Hepatic cirrhosis type: unspecified hepatic cirrhosis Ascites presence: without ascites Qualified Code(s): K74.60 - Unspecified cirrhosis of liver (4) Acute blood loss anemia Priority: Primary Status: Acute (5) Ehixl-mv-rvasiel kidney injury Status: Acute Qualifiers: Acute renal failure type: unspecified Chronic kidney disease stage: unspecified stage Qualified Code(s): N17.9 - Acute kidney failure, unspecified; N18.9 - Chronic kidney disease, unspecified Hospital course: Ms. Pineda is a 77 year old female Discharge discussed with: patient, family - Time Spent with Patient Total time spent providing and/or coordinating discharge services: Greater than 30 minutes (40 minutes..) - Discharge Medications Prescriptions: Sucralfate [Carafate] 1 gm PO BID 30 Days #60 gm Home Medications: Spironolactone [Aldactone] 50 mg PO DAILY 11/11/15 [History] Aspirin [Adult Aspirin Regimen] 81 mg PO DAILY 06/09/18 [History] Bumetanide 2 mg PO DAILY 06/09/18 [History] Esomeprazole Magnesium [Nexium] 20 mg PO DAILY 06/09/18 [History] Sucralfate [Carafate] 1 gm PO BID 30 Days #60 gm 06/11/18 [Rx] Allergies/Adverse Reactions: Allergy/AdvReac Type Severity Reaction Status Date / Time quinapril [From Accupril] Allergy Cough Verified 05/07/17 10:36 NSAIDS (Non-Steroidal AdvReac Gastrointestinal Verified 05/07/17 10:36 Anti-Inflamma Upset Penicillins AdvReac See Verified 05/07/17 10:36 Comments Date of admission: 06/09/18 22:16 Primary care physician: Michelle Tristan CNP Consults: 06/10/18 06:50 Consult to Gastroenterology [CONS] Routine Consulting Provider: China Mercer Reason for Consult: Likely variceal bleed, patient was in GI office prior to admission Call Completed: No 06/10/18 11:49 Consult to Invasive Line Access Team [CONS] Routine Reason for Consult: limited access Line Type: EPIV Discharging clinician: Nilton Cruz Anticipated date of discharge: 06/11/18 - Constitutional Vitals: Temp Pulse Resp BP Pulse Ox 98.2 F 75 14 133/42 96 06/11/18 11:00 06/11/18 11:00 06/11/18 11:00 06/11/18 11:00 06/11/18 11:00 General appearance: Present: cooperative, A&O X 3, pleasant, no acute distress, answers questions appropriately Exam: xx - Patient Status Disposition: Home, Self-Care Condition: Fair Functional capacity at discharge: independent ambulation Overall status at discharge: patient is progressing back to baseline - Discharge Instructions Follow Up With: Michelle Tristan CNP [Primary Care Provider] - 06/19/18 4:00 pm Additional Instructions: FOLLOW-UP WITH DR. ANTOINE OR DR BAEZA -- IN 5-10 DAYS.. - Diet and Activity Activity: resume usual activities as tolerated Diet: diabetic diet - VTE Reasons for not Prescribing Prophylaxis: Treatment not Indicated - Low risk for VTE Deep Vein Thrombosis/Pulmonary Embolism Present on Admission: No
== END 2018-06-11 15:34 | disposition home or self-care (01) ==
LOC: 3ANU 16:27 → EMEROOARM 16:27 → SUATTDRO 22:16 → 3ANU 22:50
PROVIDERS: ADMIT Internal Medicine; ATTEND Internal Medicine